=== PATIENT | male | born 1945 | race Caucasian/White ===

== ENCOUNTER 2024-09-27 08:01 | Inpatient (IN) | payer MEDICARE, MEDICAID, OTHER, SELFPAY ==
[2024-09-27] VITALS (16 sets, daily range): BP systolic 89–150; BP diastolic 52–71; PULSE 60–79; RESP 20–37; TEMP 36.6–37.7; O2SAT 98–100; BMI 28.9
--- NOTE | 2024-09-27 | ECHO_ITS ---
Patient Info Name: Harvey Sagastume Age: 79 years : 1945 Gender: Male Ht: 70 in Wt: 284 lbs BSA: 2.58 m2 HR: 73 bpm BP: 136 / 64 mmHg Technical Quality: Poor Exam Date: 09/27/2024 3:26 PM Exam Location: Echo Lab Patient Status: Outpatient Admit Date: 09/27/2024 Staff Ordering Physician: Yenny Nelson APRN Scientific Systems Analyst: Kalin Mercer RDCS Attending Provider: Olvin Rodriguez MD Referring Physician: Leslie VALDEZ; Exam Type: CA echo doppler color flow Study Info Indications - ELEVATED BNP - HYPOXIA Complete two-dimensional, color flow and Doppler transthoracic echocardiogram is performed. Summary 1. Complete two-dimensional, color flow and Doppler transthoracic echocardiogram is performed. 2. Technically suboptimal study due to poor sonographic images. 3. Left ventricular chamber dimension is normal. 4. There is mild concentric increased left ventricular wall thickness. 5. Left ventricular septal wall motion is abnormal with septal motion related to pacing. 6. Left ventricular systolic function is preserved, estimated at 50-55%. 7. The left ventricular diastolic function is grade IV diastolic dysfunction. 8. E/e' 10 is mildly elevated. 9. Linear artifact in right ventricle suggestive of catheter(s), pacemaker lead(s), or ICD lead(s). 10. Left atrial chamber dimension is severely enlarged. 11. Right atrial chamber dimension is severely enlarged. 12. Linear artifact in the right atrium suggestive of catheter(s), pacemaker lead(s), or ICD lead(s). 13. The aortic valve is not well visualized. Cannot determine number of aortic valve leaflets. 14. There is moderate to severe aortic valve stenosis based on a peak velocity of 258 cm/s, mean gradient of 18 mmHg, and aortic valve area of 0.9 cm2. 15. The mitral valve has severely calcified annulus. 16. The tricuspid valve leaflets are not well visualized. 17. Mild pulmonary hypertension, estimated pulmonary arterial systolic pressure is 46 mmHg. Left Ventricle E/e' 10 is mildly elevated. Left ventricular systolic function is preserved, estimated at 50-55%. Technically suboptimal study due to poor sonographic images. Left ventricular chamber dimension is normal. There is mild concentric increased left ventricular wall thickness. Left ventricular septal wall motion is abnormal with septal motion related to pacing. The left ventricular diastolic function is grade IV diastolic dysfunction. Right Ventricle Linear artifact in right ventricle suggestive of catheter(s), pacemaker lead(s), or ICD lead(s). Right ventricular chamber dimension is not well visualized. Left Atria Left atrial chamber dimension is severely enlarged. Right Atria Linear artifact in the right atrium suggestive of catheter(s), pacemaker lead(s), or ICD lead(s). Right atrial chamber dimension is severely enlarged. Aortic Valve The aortic valve is not well visualized. Cannot determine number of aortic valve leaflets. There is moderate to severe aortic valve stenosis based on a peak velocity of 258 cm/s, mean gradient of 18 mmHg, and aortic valve area of 0.9 cm2. There is no aortic valve regurgitation. Pulmonic Valve The pulmonic valve is not well visualized. Mitral Valve The mitral valve has severely calcified annulus. There is no mitral valve stenosis. There is no mitral valve regurgitation. Tricuspid Valve The tricuspid valve leaflets are not well visualized. Mild pulmonary hypertension, estimated pulmonary arterial systolic pressure is 46 mmHg. Pericardium/Pleural There is no pericardial effusion. Inferior Vena Cava Normal inferior vena cava with >50% collapse upon inspiration consistent with normal right atrial pressure, 5 mmHg. Aorta The aortic root size at the sinus of Valsalva is normal. Left Ventricular Outflow Tract Name Value Normal LVOT 2D LVOT Diameter 1.9 cm LVOT Doppler LVOT Peak Gradient 2 mmHg LVOT Mean Gradient 1 mmHg LVOT VTI 16 cm LVOT VTI/AV VTI Ratio 0.3 LVOT Stroke Volume 47 ml LVOT CO 2.7 l/min LVOT CI 1.1 l/min/m2 Pulmonic Valve Name Value Normal RVOT Doppler RVOT Peak Gradient 4 mmHg PV Doppler PV Peak Gradient 4 mmHg Mitral Valve Name Value Normal MV Doppler MV Decel [place] 569 cm/s2 MV PHT 60 ms MV Area (PHT) 3.6 cm2 4.0-5.0 MV Diastolic Function MV E Peak Velocity 118 cm/s MV A Peak Velocity 37 cm/s MV E/A 3.2 MV Decel Time 208 ms MV Annular TDI MV E/e' (Septal) 14.1 <=8.0 MV E/e' (Lateral) 8.8 <=8.0 MV E/e' (Average) 11.4 Tricuspid Valve Name Value Normal TV Regurgitation Doppler TR Peak Velocity 319 cm/s TR Peak Gradient 41 mmHg Estimated PAP/RSVP RA Pressure 5 mmHg <=5 PA Systolic Pressure 46 mmHg <36 RV Systolic Pressure 46 mmHg <36 Aorta Name Value Normal Ascending Aorta Ao Root Diameter (MM) 2.4 cm Ao Root Diam Index (MM) 0.9 cm/m2 Aortic Valve Name Value Normal AV Doppler AV Peak Velocity 258 cm/s AV Peak Gradient 27 mmHg AV Mean Gradient 18 mmHg AV VTI 52 cm AV Area (Cont Eq VTI) 0.9 cm2 >=3.0 AV Area (Cont Eq Eddie) 0.8 cm2 AV Regurgitation 2D LVOT Area 2.9 cm2 Ventricles Name Value Normal LV Dimensions 2D/MM IVS Diastolic Thickness (2D) 1.3 cm 0.6-1.0 LVID Diastole (2D) 5.5 cm 4.2-5.8 LVIW Diastolic Thickness (2D) 0.9 cm 0.6-1.0 LVID Systole (2D) 4.0 cm 2.5-4.0 LVOT Diameter 1.9 cm LV Mass (2D Cubed) 250.48 g 88.00-224.00 LV Mass Index (2D Cubed) 97 g/m2 49-115 Relative Wall Thickness (2D) 0.34 LV Fractional Shortening/Ejection Fraction 2D/MM LV Fractional Shortening (2D) 28 % 25-43 LV EF (2D Teicholz) 54 % 52-72 LV Diastolic Volume (4C MOD) 89 ml LV EF (4C MOD) 33 % LV Diastolic Volume (2C MOD) 90 ml LV EF (2C MOD) 51 % LV Diastolic Volume (BP MOD) 91 ml 62-150 LV Diastolic Volume Index (BP MOD) 35 ml/m2 34-74 LV Systolic Volume (BP MOD) 53 ml 21-61 LV Systolic Volume Index (BP MOD) 21 ml/m2 11-31 LV EF (BP MOD) 41 % 52-72 LV Diastolic Length (4C) 8.4 cm LV Systolic Length (4C) 7.9 cm LV Stroke Volume (4C MOD) 30 ml Atria Name Value Normal LA Dimensions LA Dimension (MM) 4.4 cm 3.0-4.1 LA Volume (4C A-L) 122 ml LA Volume (BP A-L) 119 ml RA Dimensions RA Area (4C) 28.6 cm2 <=18.0 Report Signatures
--- NOTE | ~2024-09-27 | XR_ITS ---
XR chest 2V 09/27/2024 08:26 Indication: Shortness of breath Procedure: 2 view chest Comparison: No prior studies for comparison. Findings: Status post median sternotomy for CABG. Pacemaker leads in expected position. Bibasilar air space disease. Small right pleural effusion. No pneumothorax. Mild cardiomegaly. Impression: 1: Bibasilar airspace disease, suspicious for pneumonia. 2: Small right pleural effusion. Reviewed, dictated and finalized at location A. STRIAL NURSE Impression: 1: Bibasilar airspace disease, suspicious for pneumonia. 2: Small right pleural effusion.
--- NOTE | 2024-09-27 08:01 | ECG_ITS ---
Test Date: 2024-09-27 08:09:19 Measurements Intervals [place] Rate: 63 P: 0 AK: 0 QRS: 233 QRSD: 157 T: 125 QT: 469 QTc: 482 Interpretive Statements ELECTRONIC VENTRICULAR PACEMAKER No previous ECG available for comparison Electronically Signed On 09-27-2024 14:43:09 IS ARCHITECT by Slick Carnes M.D.
[2024-09-27 08:34] LABS: Basophils Percent Auto 0.2 % (0.2-1.2); Hematocrit 39.5 % (42.0-52.0); Hemoglobin 12.2 g/dL (14.0-18.0); Immature Granulocyte Absolute 0.02 K/mm3 (0.00-0.031); Immature Granulocyte Percent A 0.3 % (0-0.5); Immature Platelet Fraction Pct 1.4 % (0.9-11.2); Lymphocytes Absolute Auto 0.34 K/mm3 (0.9-3.2); Lymphocytes Percent Auto 5.5 % (18.3-44.2); Mean Corpuscular HGB Conc 30.9 g/dl (32-36); Mean Corpuscular Hemoglobin 26.6 pg (26-34); Mean Corpuscular Volume 86.1 fl (80-100); Mean Platelet Volume 9.6 fl (7.4-10.4); Monocytes Absolute Auto 0.4 K/mm3 (0.1-0.6); Monocytes Percent Auto 7.2 % (2.6-8.5); Neutrophils Absolute Auto 5.3 K/mm3 (1.3-6.7); Neutrophils Percent Auto 86.8 % (45.5-73.1); Platelet Count Result 92 k/mm3 (150-375); Red Blood Count 4.59 M/mm3 (4.6-6.20); Red Cell Distribution Width 16.5 % (11.5-14.5); White Blood Count 6.2 K/mm3 (4.5-10.0)
[2024-09-27 08:38] LABS: Alanine Aminotransferase 28 U/L (6-50); Albumin Level 4.6 g/dL (3.5-5.1); Alkaline Phosphatase 66 U/L (38-126); Anion Gap 10 mmol/L (4-12); Aspartate Amino Transferase 48 U/L (17-59); Bilirubin,Total 0.9 mg/dL (0.2-1.3); Blood Urea Nitrogen 21 mg/dL (9-20); Calcium 9.1 mg/dL (8.4-10.2); Carbon Dioxide 27 mmol/L (22-30); Chloride 99 mmol/L (98-107); Estimated CRCL calculation 67 ml/min; Estimated Glomerular Filt Rate > 60; Glucose 125 mg/dL (65-110); Sodium 136 mmol/L (137-145)
[2024-09-27 09:06] LABS: Add Urine Microscopic? NO; Appearance Urine Clear (Clear); Bacteria Urine None Seen /hpf; Bilirubin Urine Negative (Negative); Blood Urine Non-Hemolyzed Trace (Negative); Color Urine Yellow (Yellow); Glucose Urine UA Negative (Negative); Ketones Urine Negative (Negative); Leukocyte Esterase Ur Negative LEU/UL (Negative); Nitrate Urine Negative (Negative); Non Pathogenic Casts 0-2; Protein Urine Negative (Negative); RBC Urine 0-2 /hpf (0-2); Specific Grav Ur 1.015 (1.001-1.035); Squamous Epithelial Cell Urine None Seen /hpf (Few); WBC Urine 0-5 /hpf (0-3); pH Urine 5.5 (5.0-9.0)
--- NOTE | 2024-09-27 09:06 | ED_ITS ---
HPI - General Adult General Chief complaint: Shortness of Breath/Dyspnea Stated complaint: SOB Time Seen by Provider: 09/27/24 08:21 History of Present Illness HPI narrative: Patient is 79-year-old gentleman presents emergency department with chief complaint of shortness of breath. Patient reports over the last 4 days been having increasing shortness of breath report that he has had a productive cough patient does not normally wear oxygen was found to be hypoxic by EMS was placed on nasal cannula oxygen. Patient denies chest pain reports that he has had some generalized body aches Related Data Allergies Allergy/AdvReac Type Severity Reaction Status Date / Time ciprofloxacin (From Cipro) Allergy Mild Other Verified 09/27/24 09:08 Review of Systems 2 Review of Systems: A 10 system review of systems was completed on the patient and is negative except for what is stated in the HPI. Nursing and ancillary documentation was reviewed. Exam 2 Narrative: GENERAL: Well-appearing, well-nourished, and in no acute distress. HEAD: Normocephalic, atraumatic. EYES: PERRLA and EOMI. ENT: Nares clear, no rhinorrhea or epistaxis. Mucous membranes moist. NECK: Supple. CHEST: Clear to auscultation. No respiratory distress. HEART: Regular rate and rhythm. No murmur heard. Normal peripheral pulses. ABDOMEN: Soft, nontender, nondistended, normal active bowel sounds. EXTREMITIES: Normal range of motion. No edema. SKIN: Warm, dry, no rash. NEURO: No focal deficits. Alert and oriented x3. PSYCH: Normal mood and affect. Course Vital Signs Vital signs: Vital Signs Temperature 37.1 C 09/27/24 08:02 Pulse Rate 79 09/27/24 08:02 Respiratory Rate 37 H 09/27/24 08:02 Blood Pressure 150/67 H 09/27/24 08:02 Pulse Oximetry 98 09/27/24 08:02 Temperature 37.1 C 09/27/24 08:02 Pulse Rate 63 09/27/24 11:50 Respiratory Rate 26 H 09/27/24 11:50 Blood Pressure 89/52 L 09/27/24 11:50 Pulse Oximetry 100 09/27/24 11:50 Oxygen Delivery Nasal Cannula 09/27/24 08:33 Oxygen Flow Rate 2 09/27/24 08:33 Medical Decision Making [facility] Narrative Medical decision making narrative: Differential diagnosis includes pneumonia, CHF, COVID flu, RSV, ACS EKG showed no acute Ischemic changes. The patient's oxygen status improved with 2 L nasal cannula chest x-ray showed evidence of pneumonia the patient was also found to be influenza A positive the patient also had a slight elevation in his troponin. Patient started on Rocephin Zithromax patient was also started on Tamiflu the patient was given aspirin and troponins will be trended case was discussed with the hospitalist for admission Vital Signs Vital Signs: Vital Signs Temperature 37.1 C 09/27/24 08:02 Pulse Rate 79 09/27/24 08:02 Respiratory Rate 37 H 09/27/24 08:02 Blood Pressure 150/67 H 09/27/24 08:02 Pulse Oximetry 98 09/27/24 08:02 Temperature 37.1 C 09/27/24 08:02 Pulse Rate 63 09/27/24 11:50 Respiratory Rate 26 H 09/27/24 11:50 Blood Pressure 89/52 L 09/27/24 11:50 Pulse Oximetry 100 09/27/24 11:50 Oxygen Delivery Nasal Cannula 09/27/24 08:33 Oxygen Flow Rate 2 09/27/24 08:33 Lab Data 09/27/24 08:17 09/27/24 08:17 Labs: Lab Results 09/27/24 09/27/24 09/27/24 Range/Units 08:17 08:42 09:22 WBC 6.2 (4.5-10.0) K/mm3 RBC 4.59 L (4.6-6.20) M/mm3 Hgb 12.2 L (14.0-18.0) g/dL Hct 39.5 L (42.0-52.0) % MCV 86.1 (80-100) fl MCH 26.6 (26-34) pg MCHC 30.9 L (32-36) g/dl RDW 16.5 H (11.5-14.5) % Plt Count 92 L (150-375) k/mm3 MPV 9.6 (7.4-10.4) fl Immature Gran % (Auto) 0.3 (0-0.5) % Neut % (Auto) 86.8 H (45.5-73.1) % Lymph % (Auto) 5.5 L (18.3-44.2) % [place] % (Auto) 7.2 (2.6-8.5) % Eos % (Auto) 0.0 (0-4.4) % Baso % (Auto) 0.2 (0.2-1.2) % Lymph # (Auto) 0.34 L (0.9-3.2) K/mm3 [place] # (Auto) 0.4 (0.1-0.6) K/mm3 Eos # (Auto) 0.0 (0-0.3) K/mm3 Baso # (Auto) 0.0 (0.0-0.1) K/mm3 Abs Immat Gran (auto) 0.02 (0.00-0.031) K/mm3 Absolute Neuts (auto) 5.3 (1.3-6.7) K/mm3 Absolute Nucleated RBC 0.000 (0.0-0.012) K/mm3 Nucleated RBC % 0.0 (0.0-0.2) % % Immature Plt Fraction 1.4 (0.9-11.2) % PT 20.9 H (11.1-14.7) Seconds INR 1.7 APTT 44.1 H (22.3-36.8) Seconds Sodium 136 L (137-145) mmol/L Potassium 4.0 (3.4-5.0) mmol/L Chloride 99 (98-107) mmol/L Carbon Dioxide 27 (22-30) mmol/L Anion Gap 10 (4-12) mmol/L BUN 21 H (9-20) mg/dL Creatinine 1.05 (0.7-1.3) mg/dL Estim Creat Clear Calc 67 ml/min Estimated GFR > 60 (59 - ) Glucose 125 H (65-110) mg/dL Lactic Acid 1.1 (0.7-2.0) mmol/L Calcium 9.1 (8.4-10.2) mg/dL Magnesium 2.1 (1.6-2.3) mg/dL Total Bilirubin 0.9 (0.2-1.3) mg/dL AST 48 (17-59) U/L ALT 28 (6-50) U/L Alkaline Phosphatase 66 (38-126) U/L Troponin I 0.078 H* (0.000-0.034) ng/mL NT-Pro-B Natriuret Pep 5680 H (19.9-100) pg/mL Total Protein 8.0 (6.3-8.2) g/dL Albumin 4.6 (3.5-5.1) g/dL Lipase 70 (23-300) U/L Procalcitonin 0.3 ng/mL Urine Color Yellow (Yellow) Urine Appearance Clear (Clear) Urine pH 5.5 (5.0-9.0) Ur Specific [place] 1.015 (1.001-1.035) Urine Protein Negative (Negative) mg/dL Urine Glucose (UA) Negative (Negative) mg/dL Urine Ketones Negative (Negative) mg/dL Ur Blood (Man) Non-hemolyzed trace (Negative) Urine Nitrate Negative (Negative) Urine Bilirubin Negative (Negative) Urine Urobilinogen 1.0 (<2.0) mg/dL Leukocyte Esterase Rfl Negative (Negative) HORACIO/UL Urine RBC 0-2 (0-2) /hpf Urine WBC 0-5 (0-3) /hpf Ur Squamous Epith Cells None seen (Few) /hpf Urine Bacteria None seen /hpf Urine Casts 0-2 Influenza A (RT-PCR) Positive A (Negative) Influenza B (RT-PCR) Negative (Negative) RSV (RT-PCR) Negative (Negative) SARS-CoV-2 RNA (RT-PCR) Negative (Negative) 09/27/24 Range/Units 12:04 WBC (4.5-10.0) K/mm3 RBC (4.6-6.20) M/mm3 Hgb (14.0-18.0) g/dL Hct (42.0-52.0) % MCV (80-100) fl MCH (26-34) pg MCHC (32-36) g/dl RDW (11.5-14.5) % Plt Count (150-375) k/mm3 MPV (7.4-10.4) fl Immature Gran % (Auto) (0-0.5) % Neut % (Auto) (45.5-73.1) % Lymph % (Auto) (18.3-44.2) % [place] % (Auto) (2.6-8.5) % Eos % (Auto) (0-4.4) % Baso % (Auto) (0.2-1.2) % Lymph # (Auto) (0.9-3.2) K/mm3 [place] # (Auto) (0.1-0.6) K/mm3 Eos # (Auto) (0-0.3) K/mm3 Baso # (Auto) (0.0-0.1) K/mm3 Abs Immat Gran (auto) (0.00-0.031) K/mm3 Absolute Neuts (auto) (1.3-6.7) K/mm3 Absolute Nucleated RBC (0.0-0.012) K/mm3 Nucleated RBC % (0.0-0.2) % % Immature Plt Fraction (0.9-11.2) % PT (11.1-14.7) Seconds INR APTT (22.3-36.8) Seconds Sodium (137-145) mmol/L Potassium (3.4-5.0) mmol/L Chloride (98-107) mmol/L Carbon Dioxide (22-30) mmol/L Anion Gap (4-12) mmol/L BUN (9-20) mg/dL Creatinine (0.7-1.3) mg/dL Estim Creat Clear Calc ml/min Estimated GFR (59 - ) Glucose (65-110) mg/dL Lactic Acid (0.7-2.0) mmol/L Calcium (8.4-10.2) mg/dL Magnesium (1.6-2.3) mg/dL Total Bilirubin (0.2-1.3) mg/dL AST (17-59) U/L ALT (6-50) U/L Alkaline Phosphatase (38-126) U/L Troponin I 0.070 H* (0.000-0.034) ng/mL NT-Pro-B Natriuret Pep (19.9-100) pg/mL Total Protein (6.3-8.2) g/dL Albumin (3.5-5.1) g/dL Lipase (23-300) U/L Procalcitonin ng/mL Urine Color (Yellow) Urine Appearance (Clear) Urine pH (5.0-9.0) Ur Specific [place] (1.001-1.035) Urine Protein (Negative) mg/dL Urine Glucose (UA) (Negative) mg/dL Urine Ketones (Negative) mg/dL Ur Blood (Man) (Negative) Urine Nitrate (Negative) Urine Bilirubin (Negative) Urine Urobilinogen (<2.0) mg/dL Leukocyte Esterase Rfl (Negative) HORACIO/UL Urine RBC (0-2) /hpf Urine WBC (0-3) /hpf Ur Squamous Epith Cells (Few) /hpf Urine Bacteria /hpf Urine Casts Influenza A (RT-PCR) (Negative) Influenza B (RT-PCR) (Negative) RSV (RT-PCR) (Negative) SARS-CoV-2 RNA (RT-PCR) (Negative) Discharge Plan Discharge Clinical Impression: Pneumonia, Acute hypoxemic respiratory failure, Influenza A, Elevated troponin Patient Disposition: Still a Patient Condition: Stable Patient Language: Ukrainian Follow-up/Referrals: UNKNOWN,DOCTOR [Primary Care Provider] - Time of Disposition: 12:20
[2024-09-27 09:49] LABS: INR 1.7; Prothrombin Time 20.9 Seconds (11.1-14.7)
[2024-09-27 09:50] LABS: Partial Thromboplastin Time 44.1 Seconds (22.3-36.8)
[2024-09-27 09:52] LABS: Lactic Acid Reflex 1.1 mmol/L (0.7-2.0); Lipase 70 U/L (23-300); Magnesium 2.1 mg/dL (1.6-2.3)
[2024-09-27] MEDS: AZITHROMYCIN 500 MG/NS 250 ML 500 MG/250 ML BAG 250 MG IVPB (09:56)
[2024-09-27 10:09] LABS: NT Pro B Type Natriuretic Pept 5680 pg/mL (19.9-100); Troponin I 0.078 ng/mL (0.000-0.034)
[2024-09-27 10:10] LABS: Procalcitonin 0.3 ng/mL
[2024-09-27 10:14] LABS: Influenza A QL RT-PCR Positive (Negative); Influenza B QL RT-PCR Negative (Negative); RSV RNA, RT-PCR Negative (Negative); SARS-CoV-2 RNA PCR Negative (Negative)
--- NOTE | 2024-09-27 11:50 | PC.NURSE ---
Patient's BP trending lower than initial blood pressures. Verbal order for 1000ml blous at this time by EDP.
[2024-09-27] MEDS: SODIUM CHLORIDE 0.9% IV 1,000 ML 999 ML IV CONT (12:06)
--- NOTE | 2024-09-27 13:55 | P.HP_ITS ---
H&P: HPI History of Present Illness Date/Time: 09/27/24 13:55 Chief Complaint: Shortness of Breath Narrative: 79 y/o M presents here with shortness of breath with PMH of MA, atrial fibrillation, CHF, CAD, HLD, hypertension, pacemaker, emphysema, GERD, BPH, renal disease, diabetes, anxiety/depression. The patient presents here from [facility] via EMS for further evaluation of shortness of breath. The patient reports he has been feeling short of breath for the past 4 days. He reports the shortness of breath is accompanied by a productive cough and fatigue. Sputum has been green. He denies fever, chills, body aches, chest pain, nausea, vomiting, diarrhea, or abdominal pain. Patient was found to be hypoxic by EMS upon their arrival, placed on 2L NC while en route to the ER. Arrived to the ER at 98% on 2L NC and tachypneic in the 30's. The patient does not have a history of supplemental O2 requirement. The patient does have a history of CHF. He denies any recent increase in lower extremity swelling or weight gain. Initial VS at presentation: 98.7? F, HR 79, RR 37, 150/67, and 98% on 2L NC. ED workup showed: WBC 6.2, hemoglobin 12.2, INR 1.7, creatinine 1.05 and GFR >60, glucose 125, lactic 1.1, troponin 0.070, procalcitonin 0.3, and BNP 5680. No previous labs available for comparison. CXR showed bibasilar airspace disease suspicious for pneumonia and a small right pleural effusion. UA unremarkable. Patient tested positive for Flu A, negative for Flu B/RSV/COVID. Review of Systems Review of Systems: All systems reviewed & are unremarkable except as noted in HPI and below PMFSH Past Medical History Medical History Depression Anxiety Diabetes Anemia Arthritis Renal disease GERD (gastroesophageal reflux disease) Emphysema, unspecified BPH (benign prostatic hyperplasia) Myocardial infarction HTN (hypertension) HLD (hyperlipidemia) CAD (coronary artery disease) CHF (congestive heart failure) Atrial fibrillation Dementia Surgical History Surgical History History of permanent cardiac pacemaker placement Social History Social History Smoking status: Never smoker Alcohol intake: former Substance use: former Substance use type: marijuana Do You Feel Safe in your Home?: Yes Lack of Transportation: No Lack of Food: Never True Current Housing: I Have Housing Concerned About Future Housing: No Difficulty Paying Gas/Electric Bills: No Difficulty Paying for Meds: No Currently Unemployed: No Education: High School Diploma/GED Difficulty w/ Childcare or Family Care: No Living arrangements: [facility] Occupation/Education: retired Gender identity (if verbalized by the patient): Male Sexual Orientation (if Verbalized by the Patient): Straight or Heterosexual Spiritual care concerns: No Agree to blood products: Yes Meds Home Medications and Allergies Home Medications ?Medication ?Instructions ?Recorded ?Confirmed ?Type acetaminophen 325 mg tablet 650 mg PO Q6H PRN pain 09/27/24 09/27/24 History (Tylenol) amoxicillin 500 mg capsule 500 mg PO Q8H 09/27/24 09/27/24 History apixaban 5 mg tablet (Eliquis) 5 mg PO DAILY 09/27/24 09/27/24 History aspirin 81 mg chewable tablet 81 mg PO DAILY 09/27/24 09/27/24 History bumetanide 0.5 mg tablet 0.5 mg PO BID 09/27/24 09/27/24 History diclofenac sodium 1 % topical gel 2 g topical QID PRN pain 09/27/24 09/27/24 History (Arthritis Pain (diclofenac)) ergocalciferol (vitamin D2) 1,000 50 mcg PO DAILY 09/27/24 09/27/24 History unit capsule ferrous sulfate 325 mg (65 mg 325 mg PO DAILY 09/27/24 09/27/24 History iron) tablet (FeroSul) finasteride 5 mg tablet 5 mg PO DAILY 09/27/24 09/27/24 History galantamine 24 mg 24 hr 24 mg PO DAILY 09/27/24 09/27/24 History capsule,extended release lidocaine 4 % topical cream 1 applic topical Q8H PRN pain 09/27/24 09/27/24 History (AsperFlex (lidocaine)) melatonin 3 mg tablet 3 mg PO HS 09/27/24 09/27/24 History memantine 10 mg tablet 10 mg PO QPM 09/27/24 09/27/24 History pantoprazole 40 mg tablet,delayed 40 mg PO DAILY 09/27/24 09/27/24 History release polyethylene glycol 3350 17 17 g PO DAILY PRN constipation 09/27/24 09/27/24 History gram/dose oral powder potassium chloride 10 mEq 10 meq PO BID 09/27/24 09/27/24 History tablet,extended release rosuvastatin 40 mg tablet 40 mg PO DAILY 09/27/24 09/27/24 History sennosides 8.6 mg tablet (senna) 17.2 mg PO DAILY PRN constipation 09/27/24 09/27/24 History sertraline 100 mg tablet 100 mg PO DAILY 09/27/24 09/27/24 History tramadol 50 mg tablet 50 mg PO Q8H PRN pain 09/27/24 09/27/24 History Allergies Allergy/AdvReac Type Severity Reaction Status Date / Time ciprofloxacin (From Cipro) Allergy Mild Other Verified 09/27/24 14:38 Vital Signs Vital Signs - 24 hr 09/27/24 08:02 09/27/24 08:05 09/27/24 08:33 Temperature 98.7 F Pulse Rate 79 73 Respiratory Rate 37 H Blood Pressure 150/67 H Pulse Oximetry 98 98 Oxygen Delivery Nasal Cannula Oxygen Flow Rate 2 09/27/24 09:35 09/27/24 11:50 09/27/24 13:03 Temperature Pulse Rate 60 63 60 Respiratory Rate 30 H 26 H 25 H Blood Pressure 125/65 89/52 L 139/60 Pulse Oximetry 99 100 98 Oxygen Delivery Oxygen Flow Rate Exam Const: General: comfortable Other: , male, elderly, ill-appearing. Very mild work of breathing without overt distress. HENMT: Face/Nose/Sinus: Normal nares present Mouth: Yes dry mucous m embranes Other: Nasal cannula in place Eyes: General: appearance normal, both eyes and all related structures Sclera: sclerae normal Pupils: Equal, round and reactive pupils present EOM: EOMs intact bilaterally Resp: Other: Mild dyspnea with mild work of breathing without overt distress. Bibasilar crackles, left worse than right. Cardio: Rate: regular rate Rhythm: regular rhythm Other: S1-S2 present without murmur, rub, ectopy GI: Other: Abdomen soft, nondistended, nontender Skin: General skin exam: normal color and no rashes or lesions noted Wounds: no wounds Neuro: Speech: normal speech Motor exam (neuro): 5/5 motor strength present throughout Sensory Exam: normal sensation Other: Who somnolent, awakens to voice but has difficulty sustaining wakefulness. A&O x4. Extrem: General: normal to inspection Psych: Mental Status: mental status grossly normal Affect: normal affect Other: Good to fair insight and judgment, pleasant H&P: Results Labs Labs: Short CBC 09/27/24 Range/Units 08:17 WBC 6.2 (4.5-10.0) K/mm3 Hgb 12.2 L (14.0-18.0) g/dL Hct 39.5 L (42.0-52.0) % Plt Count 92 L (150-375) k/mm3 BMP 09/27/24 08:17 Sodium 136 L Potassium 4.0 Chloride 99 Carbon Dioxide 27 BUN 21 H Creatinine 1.05 Glucose 125 H Calcium 9.1 Cardiac Enzymes 09/27/24 09/27/24 Range/Units 09:22 12:04 Troponin I 0.078 H* 0.070 H* (0.000-0.034) ng/mL Liver Function 09/27/24 Range/Units 08:17 Total Bilirubin 0.9 (0.2-1.3) mg/dL AST 48 (17-59) U/L ALT 28 (6-50) U/L Alkaline Phosphatase 66 (38-126) U/L Albumin 4.6 (3.5-5.1) g/dL Urine 09/27/24 Range/Units 08:42 Urine Color Yellow (Yellow) Urine Appearance Clear (Clear) Urine pH 5.5 (5.0-9.0) Ur Specific Bunn 1.015 (1.001-1.035) Urine Protein Negative (Negative) mg/dL Urine Glucose (UA) Negative (Negative) mg/dL Assessment and Plan Assessment and plan (1) Acute hypoxemic respiratory failure: Code(s): J96.01 - Acute respiratory failure with hypoxia Status: Acute Assessment and Plan: - CXR: 1: Bibasilar airspace disease, suspicious for pneumonia. 2: Small right pleural effusion. - new supplemental O2 requirement, currently requiring 2L NC. wean as tolerated and maintain sat above 92%. Suspect hypoxia may be multifactorial. Patient tested positive for flu, chest x-ray concerning for pneumonia, and BNP elevated with effusion seen on CXR. Will add echo, does have history of CHF on Bumex 0.5 mg b.i.d. but does not appear volume overloaded on exam. Monitor I&Os and daily weight, add TSH. (2) Pneumonia: Qualifiers: Pneumonia type: due to influenza A virus Qualified Code(s): J10.00 - Influenza due to other identified influenza virus with unspecified type of pneumonia Code(s): J18.9 - Pneumonia, unspecified organism Status: Acute Assessment and Plan: - did not meet SIRS criteria. RR only. BC were obtained on 09/27, follow. lactic 1.1. procalcitonin 0.3. - see CXR result above - complicating and risk factors: Flu, [facility] resident - started on CAP tx: Azithromycin and ceftriaxone on 09/27 - Viral PCR positive for flu A - new supplemental O2 requirement. Continue to maintain sat above 92%. (3) Elevated troponin: Code(s): R79.89 - Other specified abnormal findings of blood chemistry Status: Acute Assessment and Plan: - EKG, initial: Electronic ventricular pacemaker, rate 63. No previous available for comparison. - CXR concerning for pneumonia and small pleural effusion - Troponin: 0.078 -> 0.070 - echo ordered, pleural effusion on imaging and elevated BNP - telemetry monitoring Suspect mild troponin leak secondary to new hypoxia. Continue to trend. (4) Influenza A: Code(s): J10.1 - Influenza due to other identified influenza virus with other respiratory manifestations Status: Acute Assessment and Plan: - Tamiflu initiated on 09/27 - supportive care Tessalon Perles p.r.n. Mucinex p.r.n. Antipyretics p.r.n. Nebulizer p.r.n. (5) Diabetes: Qualifiers: Diabetes mellitus type: type 2 Diabetes mellitus rat exterminator insulin use: without senior living use Diabetes mellitus complication status: without complication Qualified Code(s): E11.9 - Type 2 diabetes mellitus without complications Code(s): E11.9 - Type 2 diabetes mellitus without complications Status: Chronic Assessment and Plan: Initial glucose 125. No home medications listed from [facility] paperwork. - hypoglycemia protocol - POC blood glucose ACHS - correct regimen ordered - low dose TIDWM, based off total daily insulin - A1C ordered (6) HTN (hypertension): Qualifiers: Hypertension type: unspecified Qualified Code(s): I10 - Essential (primary) hypertension Code(s): I10 - Essential (primary) hypertension Status: Chronic Assessment and Plan: - chronic, currently 126/55 - no current antihypertensive medications, is on diuretic (Bumex 0.5 mg b.i.d.) - monitor Plan Diet: Heart healthy GI Prophylaxis: Not currently indicated DVT Prophylaxis: Eliquis Lines: Peripheral Code Status: Full code Quality VTE Prophylaxis VTE prophylaxis: pharmacologic ordered Hospitalist MIPS Advance Care Plan I have confirmed that the patient's Advanced Care Plan is present, code status is documented, or surrogate decision maker is listed in patient medical record.: Yes Medication Reconciliation I have utilized all available resources to obtain, update and review the patients current medications (includes all prescriptions, OTC, herbals, cannabis, and nutritional supplements).: Yes
--- NOTE | 2024-09-27 18:44 | PC.NURSE ---
Patient arrived alert to self on tele.
[2024-09-27] MEDS: IPRATROPIUM 0.5 MG/ALBUTEROL SULFATE 2.5 MG AMPUL.NEB 3 ML INHALATION (19:51)
[2024-09-27 20:25] LABS: Troponin I 0.052 ng/mL (0.000-0.034)
[2024-09-27 20:44] LABS: Glucose Point of Care 86 mg/dl (65-105)
[2024-09-27] MEDS: MELATONIN 3 MG TABLET PO (20:51)
[2024-09-27] MEDS: OSELTAMIVIR PHOSPHATE 75 MG CAPSULE PO (20:51)
[2024-09-28] VITALS (26 sets, daily range): BP systolic 121–147; BP diastolic 56–73; PULSE 60–71; RESP 16–20; TEMP 36.8–38.2; O2SAT 95–100
[2024-09-28] MEDS: ACETAMINOPHEN 325 MG TABLET 650 MG PO (00:02)
[2024-09-28] MEDS: guaiFENesin 12 HR 600 MG TABCR PO (00:02)
[2024-09-28] MEDS: BENZONATATE 100 MG CAPSULE PO (00:02)
[2024-09-28] MEDS: IPRATROPIUM 0.5 MG/ALBUTEROL SULFATE 2.5 MG AMPUL.NEB 3 ML INHALATION ×4 (01:45→20:21)
[2024-09-28 05:00] LABS: Eosinophils Percent Auto 0.6 % (0-4.4); Hematocrit 38.4 % (42.0-52.0); Hemoglobin 11.4 g/dL (14.0-18.0); Immature Granulocyte Absolute 0.02 K/mm3 (0.00-0.031); Immature Granulocyte Percent A 0.6 % (0-0.5); Immature Platelet Fraction Pct 2.2 % (0.9-11.2); Lymphocytes Absolute Auto 0.65 K/mm3 (0.9-3.2); Lymphocytes Percent Auto 18.7 % (18.3-44.2); Mean Corpuscular HGB Conc 29.7 g/dl (32-36); Mean Corpuscular Hemoglobin 26.6 pg (26-34); Mean Corpuscular Volume 89.5 fl (80-100); Mean Platelet Volume 10.1 fl (7.4-10.4); Monocytes Absolute Auto 0.4 K/mm3 (0.1-0.6); Monocytes Percent Auto 10.7 % (2.6-8.5); Neutrophils Absolute Auto 2.4 K/mm3 (1.3-6.7); Neutrophils Percent Auto 69.4 % (45.5-73.1); Red Blood Count 4.29 M/mm3 (4.6-6.20); Red Cell Distribution Width 16.7 % (11.5-14.5); White Blood Count 3.5 K/mm3 (4.5-10.0)
[2024-09-28 05:02] LABS: Hemoglobin A1C 5.9 % (<5.7)
[2024-09-28 05:03] LABS: Anion Gap 12 mmol/L (4-12); Blood Urea Nitrogen 23 mg/dL (9-20); Calcium 8.3 mg/dL (8.4-10.2); Carbon Dioxide 23 mmol/L (22-30); Chloride 102 mmol/L (98-107); Estimated CRCL calculation 63 ml/min; Estimated Glomerular Filt Rate > 60; Glucose 99 mg/dL (65-110); Potassium 3.6 mmol/L (3.4-5.0); Sodium 137 mmol/L (137-145)
[2024-09-28 05:26] LABS: Platelet Count Result 73 k/mm3 (150-375)
[2024-09-28 05:27] LABS: Anisocytosis 1+; Burr Cells 1+; Ovalocytes 1+; Platelet Estimate Decreased (Adequate); Schistocytes None Seen
[2024-09-28 07:57] LABS: Glucose Point of Care 135 mg/dl (65-105)
[2024-09-28] MEDS: AZITHROMYCIN 500 MG/NS 250 ML 500 MG/250 ML BAG 250 MG IVPB (09:13)
[2024-09-28] MEDS: FERROUS SULFATE 325 MG TABLET DR BY MOUTH (09:14)
[2024-09-28] MEDS: FINASTERIDE 5 MG TABLET PO (09:14)
[2024-09-28] MEDS: CHOLECALCIFEROL 1,000 UNITS TABLET 2000 UNITS PO (09:14)
[2024-09-28] MEDS: SERTRALINE HCL 50 MG TABLET 100 MG PO (09:15)
[2024-09-28] MEDS: OSELTAMIVIR PHOSPHATE 75 MG CAPSULE PO ×2 (09:15→21:31)
[2024-09-28] MEDS: BUMETANIDE 0.5 MG TABLET PO (09:15)
[2024-09-28] MEDS: POTASSIUM CHLORIDE 10 MEQ ER TABLET PO ×2 (09:15→17:22)
[2024-09-28] MEDS: ROSUVASTATIN 20 MG TABLET 40 MG PO (09:15)
[2024-09-28] MEDS: PANTOPRAZOLE 40 MG TABLET PO (09:16)
--- NOTE | 2024-09-28 10:20 | PM.IMPN ---
Progress Note: A&P Assessment and Plan (1) HTN (hypertension): Qualifiers: Hypertension type: unspecified Qualified Code(s): I10 - Essential (primary) hypertension Code(s): I10 - Essential (primary) hypertension Status: Chronic (2) Elevated troponin: Code(s): R79.89 - Other specified abnormal findings of blood chemistry Status: Acute (3) Diabetes: Qualifiers: Diabetes mellitus complication status: without complication Diabetes mellitus exterminator helper termite insulin use: without assisted use Diabetes mellitus type: type 2 Qualified Code(s): E11.9 - Type 2 diabetes mellitus without complications Code(s): E11.9 - Type 2 diabetes mellitus without complications Status: Chronic (4) Pneumonia: Qualifiers: Pneumonia type: due to influenza A virus Qualified Code(s): J10.00 - Influenza due to other identified influenza virus with unspecified type of pneumonia Code(s): J18.9 - Pneumonia, unspecified organism Status: Acute (5) Acute hypoxemic respiratory failure: Code(s): J96.01 - Acute respiratory failure with hypoxia Status: Acute (6) Influenza A: Code(s): J10.1 - Influenza due to other identified influenza virus with other respiratory manifestations Status: Acute Plan Acute hypoxemic respiratory failure: Code(s): J96.01 - Acute respiratory failure with hypoxia Status: Acute Assessment and Plan: new supplemental O2 requirement, currently requiring 2L NC. wean as tolerated and maintain sat above 92%. Possible due to pneumonia and fluid overload because of CHF . Pneumonia: Qualifiers: Pneumonia type: due to influenza A virus Qualified Code(s): J10.00 - Influenza due to other identified influenza virus with unspecified type of pneumonia Code(s): J18.9 - Pneumonia, unspecified organism Status: Acute Assessment and Plan: Chest x-ray showed: Bibasilar airspace disease, suspicious for pneumonia. Small right pleural effusion Consistent with community-acquired pneumonia. Continue Azithromycin and ceftriaxone on 09/27 - Viral PCR positive for flu A Start Tamiflu p.o. Acute on chronic diastolic heart failure , BNP elevated with effusion seen on CXR. echo 09/27 Left ventricular systolic function is preserved, estimated at 50-55%. Also suspecting moderate to severe aortic stenosis. The left ventricular diastolic function is grade IV diastolic dysfunction. history of CHF on Bumex 0.5 mg b.i.d. but does not appear volume overloaded on exam. Monitor I&Os and daily weight Start Lasix 40 mg b.i.d. IV push Consult crab backer for evaluation treatment Elevated troponin: Code(s): R79.89 - Other specified abnormal findings of blood chemistry Status: Acute Assessment and Plan: - EKG, initial: Electronic ventricular pacemaker, rate 63. No previous available for comparison. - CXR concerning for pneumonia and small pleural effusion - Troponin: 0.078 -> 0.070 - echo ordered, pleural effusion on imaging and elevated BNP - telemetry monitoring Suspect mild troponin leak secondary to new hypoxia. Consult crab backer Pancytopenia White blood cell 3.5 1000, hemoglobin 11.4, platelet 73 Possible due to infection Follow-up CBC Diabetes: Qualifiers: Diabetes mellitus type: type 2 Diabetes mellitus exterminator helper termite insulin use: without exterminator helper termite use Diabetes mellitus complication status: without complication Qualified Code(s): E11.9 - Type 2 diabetes mellitus without complications Code(s): E11.9 - Type 2 diabetes mellitus without complications Status: Chronic Assessment and Plan: Initial glucose 125. No home medications listed from [facility] paperwork. - hypoglycemia protocol - POC blood glucose ACHS - correct regimen ordered - low dose TIDWM, based off total daily insulin - A1C ordered HTN (hypertension): Qualifiers: Hypertension type: unspecified Qualified Code(s): I10 - Essential (primary) hypertension Code(s): I10 - Essential (primary) hypertension Status: Chronic Assessment and Plan: - chronic, currently 126/55 - no current antihypertensive medications, is on diuretic (Bumex 0.5 mg b.i.d.) - monitor Subjective Date/time seen: 09/28/24 10:20 Interval history: Patient is afebrile, blood pressure stable, patient is on 2 L oxygen. Labs showed pancytopenia. Patient still has cough with scant phlegm, patient has significant dyspnea with exertion. Patient denies abdomen pain nausea vomiting diarrhea Exam Narrative: GENERAL: Pleasant, in no acute distress. Well-nourished. - EYES: EOMI. Anicteric. - HENT: Moist mucous membranes. - LUNGS: Coarse breath sound bilateral base, no wheezing, rhonchi, or rales. - CARDIOVASCULAR: Regular rate and rhythm. No murmur. No JVD. - ABDOMEN: Soft, non-tender and non-distended. No palpable masses. - EXTREMITIES: No edema. Peripheral pulses 2+. Non-tender. - NEUROLOGIC: No focal neurological deficits. CN II-XII grossly intact. - PSYCHIATRIC: Awake, Alert and oriented x 3. Appropriate mood and affect. - SKIN: No rashes or lesions. Warm. - LYMPH: No cervical lymphadenopathy. Objective Data Vital Signs Vital Signs: Vital Signs - 24 hr 09/27/24 11:50 09/27/24 13:03 09/27/24 14:05 Temperature Pulse Rate 63 60 61 Respiratory Rate 26 H 25 H 25 H Blood Pressure 89/52 L 139/60 126/71 Pulse Oximetry 100 98 98 Oxygen Delivery Oxygen Flow Rate Fraction of Inspired Oxygen 09/27/24 14:46 09/27/24 16:00 09/27/24 16:25 Temperature 98.1 F 97.9 F Pulse Rate 73 60 65 Respiratory Rate 20 20 Blood Pressure 136/64 126/55 L Pulse Oximetry 98 100 Oxygen Delivery Oxygen Flow Rate Fraction of Inspired Oxygen 09/27/24 18:00 09/27/24 19:50 09/27/24 19:51 Temperature 99.9 F H Pulse Rate 60 64 Respiratory Rate 20 Blood Pressure 121/57 L Pulse Oximetry 100 98 Oxygen Delivery Nasal Cannula Oxygen Flow Rate 2 Fraction of Inspired Oxygen 28 09/27/24 19:51 09/27/24 20:00 09/27/24 20:00 Temperature Pulse Rate 62 60 65 Respiratory Rate 20 20 Blood Pressure Pulse Oximetry Oxygen Delivery Oxygen Flow Rate Fraction of Inspired Oxygen 09/27/24 20:45 09/27/24 22:00 09/28/24 00:00 Temperature Pulse Rate 60 Respiratory Rate Blood Pressure Pulse Oximetry 100 99 Oxygen Delivery Nasal Cannula Nasal Cannula Oxygen Flow Rate 2 2 Fraction of Inspired Oxygen 09/28/24 00:00 09/28/24 00:02 09/28/24 00:05 Temperature 100.7 F H 100.7 F H Pulse Rate 61 60 Respiratory Rate 20 Blood Pressure 121/56 L Pulse Oximetry 99 Oxygen Delivery Oxygen Flow Rate Fraction of Inspired Oxygen 09/28/24 01:45 09/28/24 01:56 09/28/24 02:00 Temperature Pulse Rate 60 63 66 Respiratory Rate 16 16 Blood Pressure Pulse Oximetry Oxygen Delivery Oxygen Flow Rate Fraction of Inspired Oxygen 09/28/24 03:30 09/28/24 04:00 09/28/24 04:20 Temperature 98.2 F Pulse Rate 67 60 Respiratory Rate 20 Blood Pressure 147/73 H Pulse Oximetry 100 98 Oxygen Delivery Nasal Cannula Oxygen Flow Rate 2 Fraction of Inspired Oxygen 09/28/24 06:00 09/28/24 08:00 09/28/24 08:14 Temperature 98.2 F Pulse Rate 60 60 Respiratory Rate 20 Blood Pressure 141/68 H Pulse Oximetry 98 96 Oxygen Delivery Nasal Cannula Oxygen Flow Rate 2 Fraction of Inspired Oxygen 09/28/24 08:14 09/28/24 08:25 Temperature Pulse Rate 60 60 Respiratory Rate 18 18 Blood Pressure Pulse Oximetry Oxygen Delivery Oxygen Flow Rate Fraction of Inspired Oxygen Intake/Output Intake/Output: Intake & Output 09/25/24 09/26/24 09/27/24 09/28/24 23:59 23:59 23:59 23:59 Intake Total 2130 490 Output Total 300 200 Balance 1830 290 Meds/Results Medications: Active Medications Generic Name Dose Route Start Last Admin Trade Name Freq PRN Reason Stop Dose Admin Acetaminophen 650 mg 09/27/24 13:00 09/28/24 00:02 Acetaminophen 325 Mg Tablet PO 650 mg Q4H PRN Administration Mild Pain (1-3) or Fever Albuterol/Ipratropium 3 ml 09/27/24 14:00 09/28/24 08:13 Ipratropium 0.5 Mg/Albuterol Sulfate 2.5 Mg Ampul.Neb 3 Ml INHALATION 3 ml Q6HRT WILMAN Administration Albuterol/Ipratropium 3 ml 09/27/24 14:08 Ipratropium 0.5 Mg/Albuterol Sulfate 2.5 Mg Ampul.Neb 3 Ml INHALATION Q6HRT PRN Shortness Of Breath Or Wheezing Apixaban 5 mg 09/28/24 09:00 09/28/24 09:53 Apixaban 5 Mg Tablet PO Not Given Q12HR WILMAN Aspirin 81 mg 09/28/24 09:00 09/28/24 09:54 Aspirin 81 Mg Chewable Tablet PO Not Given DAILY WILMAN Benzonatate 100 mg 09/27/24 14:08 09/28/24 00:02 Benzonatate 100 Mg Capsule PO 100 mg TID PRN Administration Cough Bumetanide 0.5 mg 09/28/24 09:00 09/28/24 09:15 Bumetanide 0.5 Mg Tablet PO 0.5 mg BID WILMAN Administration Dextrose 12.5 gm 09/27/24 19:43 Dextrose 50% 25 Gm/50 Ml Syringe IV PUSH PRN PRN Hypoglycemia Protocol Diclofenac Sodium 1 applic 09/27/24 19:40 Diclofenac Sodium 1% 100 Gm Gel (*Bkc) TOPICAL QID PRN pain Ferrous Sulfate 325 mg 09/28/24 09:00 09/28/24 09:14 Ferrous Sulfate [address] BY MOUTH 325 mg DAILY WILMAN Administration Finasteride 5 mg 09/28/24 09:00 09/28/24 09:14 Finasteride 5 Mg Tablet PO 5 mg DAILY WILMAN Administration Glucagon 1 mg 09/27/24 19:43 Glucagon For Inj 1 Mg Vial IM PRN PRN Hypoglycemia Protocol Glucose 15 gm 09/27/24 19:43 Glucose Oral Gel 15 Gm Of Glucse In 37.5 Gm Tube PO PRN PRN Hypoglycemia Protocol Guaifenesin 600 mg 09/27/24 14:08 09/28/24 00:02 Guaifenesin 12 Hr 600 Mg Tabcr PO 600 mg Q12HR PRN Administration Congestion Ceftriaxone Sodium 1 gm in 50 mls @ 100 mls/hr 09/28/24 09:00 09/28/24 09:14 Rocephin 1 Gm/Ns 50 Ml IVPB 100 mls/hr Q24H WILMAN Administration Azithromycin 500 mg in 250 mls @ 250 mls/hr 09/28/24 09:00 09/28/24 09:13 Zithromax IVPB 250 mls/hr Q24H WILMAN Administration Dextrose 1,000 mls @ 100 mls/hr 09/27/24 19:43 Dextrose 5% 1,000 Ml IVPB PRN PRN Hypoglycemia Protocol Insulin Aspart 2 - 5 units 09/28/24 08:00 09/28/24 09:16 Insulin Aspart (*Bkc) 100 Units/Ml SUB-Q Not Given TIDWM REPLACED BY [facility] Protocol Melatonin 3 mg 09/27/24 21:00 09/27/24 20:51 Melatonin 3 Mg Tablet PO 3 mg HS WILMAN Administration Memantine 10 mg 09/28/24 18:00 Memantine 10 Mg Tablet PO QPM REPLACED BY [facility] Miscellaneous Information 1 each 09/27/24 00:[address] Of Application Needed And Specify Type Of Pain XX 10/27/24 00:00 CLARIFY REPLACED BY [facility] Miscellaneous Information 1 each 09/27/24 00:01 Nonformulary Drug (Galantamine 24 Mg Capsule,Ext Rel. Pellets 24 Hr) Is Non Formulary Can XX 10/27/24 00:00 CLARIFY REPLACED BY [facility] Miscellaneous Information 1 each 09/27/24 00:01 Nonformulary Drug (Lidocaine [Asperflex (Lidocaine)] 4 % Cream). Use From Home Or We [facility] XX 10/27/24 00:00 CLARIFY REPLACED BY [facility] Non-Formulary Medication 24 mg 09/28/24 09:00 Galantamine PO 10/28/24 08:59 DAILY REPLACED BY [facility] Non-Formulary Medication 1 applic 09/27/24 19:40 Lidocaine [Asperflex (Lidocaine)] TOPICAL Q8H PRN pain Oseltamivir Phosphate 75 mg 09/27/24 21:00 09/28/24 09:15 Oseltamivir Phosphate 75 Mg Capsule PO 10/02/24 20:59 75 mg Q12HR WILMAN Administration Pantoprazole Sodium 40 mg 09/28/24 09:00 09/28/24 09:16 Pantoprazole 40 Mg Tablet PO 40 mg DAILY WILMAN Administration Perflutren Lipid Microsphere 0 ml 09/27/24 14:08 Perflutren Lipid Microspheres 1.5 Ml Vial Diluted To 10 Ml Total Volume IV PUSH 09/30/24 14:08 ONCE PRN adequate visualization Protocol Polyethylene Glycol 17 gm 09/27/24 19:40 Polyethylene Glycol 3350 17 Gm Powd.Pack PO DAILY PRN constipation Potassium Chloride 10 meq 09/28/24 09:00 09/28/24 09:15 Potassium Chloride 10 Meq Er Tablet PO 10 meq BID WILMAN Administration Rosuvastatin Calcium 40 mg 09/28/24 09:00 09/28/24 09:15 Rosuvastatin 20 Mg Tablet PO 40 mg DAILY WILMAN Administration Senna 17.2 mg 09/27/24 19:40 Sennosides 8.6 Mg Tablet PO DAILY PRN constipation Sertraline HCl 100 mg 09/28/24 09:00 09/28/24 09:15 Sertraline Hcl 50 Mg Tablet PO 100 mg DAILY WILMAN Administration Tramadol HCl 50 mg 09/27/24 19:40 Tramadol Hcl (*Crx) 50 Mg Tablet PO Q8H PRN pain 4-6 Vitamin D 2,000 units 09/28/24 09:00 09/28/24 09:14 Cholecalciferol 1,000 Units Tablet PO 2,000 units DAILY WILMAN Administration Radiology Results: ITS Impressions Chest X-Ray 09/27/24 08:26 Impression: 1: Bibasilar airspace disease, suspicious for pneumonia. 2: Small right pleural effusion. Labs Labs: Laboratory Results - last 24 hr 09/27/24 09/27/24 09/27/24 12:04 19:46 20:07 WBC RBC Hgb Hct MCV MCH MCHC RDW Plt Count MPV Immature Gran % (Auto) Neut % (Auto) Lymph % (Auto) [place] % (Auto) Eos % (Auto) Baso % (Auto) Lymph # (Auto) [place] # (Auto) Eos # (Auto) Baso # (Auto) Abs Immat Gran (auto) Absolute Neuts (auto) Absolute Nucleated RBC Nucleated RBC % Platelet Estimate % Immature Plt Fraction Anisocytosis Ovalocytes Conifer Cells Schistocytes Sodium Potassium Chloride Carbon Dioxide Anion Gap BUN Creatinine Estim Creat Clear Calc Estimated GFR Glucose POC Capillary Glucose 86 Hemoglobin A1c Calcium Troponin I 0.070 H* 0.052 H* D TSH (Reflex) 09/28/24 09/28/24 09/28/24 04:10 04:18 07:36 WBC 3.5 L RBC 4.29 L Hgb 11.4 L Hct 38.4 L MCV 89.5 MCH 26.6 MCHC 29.7 L RDW 16.7 H Plt Count 73 L MPV 10.1 Immature Gran % (Auto) 0.6 H Neut % (Auto) 69.4 Lymph % (Auto) 18.7 [place] % (Auto) 10.7 H Eos % (Auto) 0.6 Baso % (Auto) 0.0 L Lymph # (Auto) 0.65 L [place] # (Auto) 0.4 Eos # (Auto) 0.0 Baso # (Auto) 0.0 Abs Immat Gran (auto) 0.02 Absolute Neuts (auto) 2.4 Absolute Nucleated RBC 0.000 Nucleated RBC % 0.0 Platelet Estimate Decreased % Immature Plt Fraction 2.2 Anisocytosis 1+ Ovalocytes 1+ Conifer Cells 1+ Schistocytes None seen Sodium 137 Potassium 3.6 Chloride 102 Carbon Dioxide 23 Anion Gap 12 BUN 23 H Creatinine 0.84 Estim Creat Clear Calc 63 Estimated GFR > 60 Glucose 99 POC Capillary Glucose 135 H Hemoglobin A1c 5.9 H Calcium 8.3 L Troponin I TSH (Reflex) 1.620
[2024-09-28 11:15] LABS: Glucose Point of Care 103 mg/dl (65-105)
[2024-09-28 16:37] LABS: Glucose Point of Care 99 mg/dl (65-105)
[2024-09-28] MEDS: FUROSEMIDE INJ 40 MG/4 ML VIAL IV PUSH (17:21)
[2024-09-28] MEDS: MEMANTINE 10 MG TABLET PO (17:22)
[2024-09-28] MEDS: MELATONIN 3 MG TABLET PO (21:31)
[2024-09-28] MEDS: APIXABAN 5 MG TABLET PO (21:31)
[2024-09-28] MEDS: DICLOFENAC SODIUM 1% 100 GM GEL (*BKC) 1 APPLIC TOPICAL (21:31)
[2024-09-29] VITALS (23 sets, daily range): BP systolic 118–129; BP diastolic 58–66; PULSE 60–83; RESP 16–22; TEMP 37–37.3; O2SAT 93–97
[2024-09-29] MEDS: IPRATROPIUM 0.5 MG/ALBUTEROL SULFATE 2.5 MG AMPUL.NEB 3 ML INHALATION ×4 (01:57→21:00)
--- NOTE | 2024-09-29 06:06 | PC.NURSE ---
Patient declined a finger stick last night for a glucose check, states he is not diabetic. A1C was checked and was 5.9.
[2024-09-29] MEDS: polyethylene glycoL 3350 17 GM POWD.PACK PO (08:42)
[2024-09-29] MEDS: ROSUVASTATIN 20 MG TABLET 40 MG PO (08:43)
[2024-09-29] MEDS: SERTRALINE HCL 50 MG TABLET 100 MG PO (08:43)
[2024-09-29] MEDS: CHOLECALCIFEROL 1,000 UNITS TABLET 2000 UNITS PO (08:43)
[2024-09-29] MEDS: FINASTERIDE 5 MG TABLET PO (08:44)
[2024-09-29] MEDS: FERROUS SULFATE 325 MG TABLET DR BY MOUTH (08:44)
[2024-09-29] MEDS: ASPIRIN 81 MG CHEWABLE TABLET PO (08:44)
[2024-09-29] MEDS: OSELTAMIVIR PHOSPHATE 75 MG CAPSULE PO ×2 (08:44→21:27)
[2024-09-29] MEDS: POTASSIUM CHLORIDE 10 MEQ ER TABLET PO ×2 (08:45→17:06)
[2024-09-29] MEDS: APIXABAN 5 MG TABLET PO ×2 (08:45→21:27)
[2024-09-29] MEDS: PANTOPRAZOLE 40 MG TABLET PO (08:45)
[2024-09-29] MEDS: FUROSEMIDE INJ 40 MG/4 ML VIAL IV PUSH (08:46)
[2024-09-29 08:48] LABS: Glucose Point of Care 103 mg/dl (65-105)
[2024-09-29] MEDS: AZITHROMYCIN 500 MG/NS 250 ML 500 MG/250 ML BAG 250 MG IVPB (09:15)
--- NOTE | 2024-09-29 10:12 | P.PNIM_ITS ---
Progress Note: A&P Assessment and Plan (1) HTN (hypertension): Qualifiers: Hypertension type: unspecified Qualified Code(s): I10 - Essential (primary) hypertension Code(s): I10 - Essential (primary) hypertension Status: Chronic (2) Elevated troponin: Code(s): R79.89 - Other specified abnormal findings of blood chemistry Status: Acute (3) Diabetes: Qualifiers: Diabetes mellitus complication status: without complication Diabetes mellitus drum maker insulin use: without mcfp use Diabetes mellitus type: type 2 Qualified Code(s): E11.9 - Type 2 diabetes mellitus without complications Code(s): E11.9 - Type 2 diabetes mellitus without complications Status: Chronic (4) Pneumonia: Qualifiers: Pneumonia type: due to influenza A virus Qualified Code(s): J10.00 - Influenza due to other identified influenza virus with unspecified type of pneumonia Code(s): J18.9 - Pneumonia, unspecified organism Status: Acute (5) Acute hypoxemic respiratory failure: Code(s): J96.01 - Acute respiratory failure with hypoxia Status: Acute (6) Influenza A: Code(s): J10.1 - Influenza due to other identified influenza virus with other respiratory manifestations Status: Acute Plan Acute hypoxemic respiratory failure: Code(s): J96.01 - Acute respiratory failure with hypoxia Status: Acute Assessment and Plan: new supplemental O2 requirement, currently requiring 2L NC. wean as tolerated and maintain sat above 92%. Possible due to pneumonia and fluid overload because of CHF . Pneumonia: Qualifiers: Pneumonia type: due to influenza A virus Qualified Code(s): J10.00 - Influenza due to other identified influenza virus with unspecified type of pneumonia Code(s): J18.9 - Pneumonia, unspecified organism Status: Acute Assessment and Plan: Chest x-ray showed: Bibasilar airspace disease, suspicious for pneumonia. Small right pleural effusion Consistent with community-acquired pneumonia. Continue Azithromycin and ceftriaxone on 09/27 - Viral PCR positive for flu A Started Tamiflu p.o. 09/27 Acute on chronic diastolic heart failure , aortic stenosis BNP elevated with effusion seen on CXR. echo 09/27 Left ventricular systolic function is preserved, estimated at 50-55%. Also s uspecting moderate to severe aortic stenosis. The left ventricular diastolic function is grade IV diastolic dysfunction. history of CHF on Bumex 0.5 mg b.i.d. but does not appear volume overloaded on exam. Monitor I&Os and daily weight Started Lasix 40 mg b.i.d. IV push 09/28 Consult promotional representative for evaluation treatment Elevated troponin: Code(s): R79.89 - Other specified abnormal findings of blood chemistry Status: Acute Assessment and Plan: - EKG, initial: Electronic ventricular pacemaker, rate 63. No previous available for comparison. - CXR concerning for pneumonia and small pleural effusion - Troponin: 0.078 -> 0.070 - echo ordered, pleural effusion on imaging and elevated BNP - telemetry monitoring Suspect mild troponin leak secondary to new hypoxia. Consult promotional representative Pancytopenia White blood cell 3.5 1000, hemoglobin 11.4, platelet 73 Possible due to infection Follow-up CBC, thrombocytopenia is improving, will blood cell count stable Diabetes: Qualifiers: Diabetes mellitus type: type 2 Diabetes mellitus drum maker insulin use: without mcfp use Diabetes mellitus complication status: without complication Qualified Code(s): E11.9 - Type 2 diabetes mellitus without complications Code(s): E11.9 - Type 2 diabetes mellitus without complications Status: Chronic Assessment and Plan: Initial glucose 125. No home medications listed from retirement paperwork. - hypoglycemia protocol - POC blood glucose ACHS - correct regimen ordered - low dose TIDWM, based off total daily insulin - A1C ordered HTN (hypertension): Qualifiers: Hypertension type: unspecified Qualified Code(s): I10 - Essential (primary) hypertension Code(s): I10 - Essential (primary) hypertension Status: Chronic Assessment and Plan: - chronic, currently 126/55 - no current antihypertensive medications, is on diuretic (Bumex 0.5 mg b.i.d.) - monitor Subjective Date/time seen: 09/29/24 10:12 Interval history: Patient is afebrile, blood pressure stable, patient is on 2 L oxygen. Labs showed pancytopenia. Patient still has cough with scant phlegm, patient feels better today, still has significant dyspnea with exertion. Patient denies abdomen pain nausea vomiting diarrhea. Exam Narrative: GENERAL: Pleasant, in no acute distress. Well-nourished. - EYES: EOMI. Anicteric. - HENT: Moist mucous membranes. - LUNGS: Coarse breath sound bilateral base, no wheezing, rhonchi, or rales. - CARDIOVASCULAR: Regular rate and rhyth m. No murmur. No JVD. - ABDOMEN: Soft, non-tender and non-dist ended. No palpable masses. - EXTREMITIES: No edema. Peripheral puls es 2+. Non-tender. - NEUROLOGIC: No focal neurological defi cits. CN II-XII grossly intact. - PSYCHIATRIC: Awake, Alert and oriented x 3. Appropriate mood and affect. - SKIN: No rashes or lesions. Warm. - LYMPH: No cervical lymphadenopathy. Objective Data Vital Signs Vital Signs: Vital Signs - 24 hr 09/28/24 11:57 09/28/24 12:00 09/28/24 14:00 Temperature 98.2 F Pulse Rate 60 63 60 Respiratory Rate 20 Blood Pressure 134/72 Pulse Oximetry 98 Oxygen Delivery Oxygen Flow Rate 09/28/24 14:40 09/28/24 14:50 09/28/24 16:00 Temperature Pulse Rate 64 66 60 Respiratory Rate 18 18 Blood Pressure Pulse Oximetry Oxygen Delivery Oxygen Flow Rate 09/28/24 16:03 09/28/24 18:00 09/28/24 20:00 Temperature 98.2 F 98.2 F Pulse Rate 62 61 71 Respiratory Rate 20 20 Blood Pressure 138/64 140/66 Pulse Oximetry 98 98 Oxygen Delivery Oxygen Flow Rate 09/28/24 20:00 09/28/24 20:22 09/28/24 20:22 Temperature Pulse Rate 60 61 Respiratory Rate 16 Blood Pressure Pulse Oximetry 95 Oxygen Delivery Nasal Cannula Oxygen Flow Rate 2 09/28/24 20:28 09/28/24 21:30 09/28/24 22:00 Temperature Pulse Rate 67 65 Respiratory Rate 16 Blood Pressure Pulse Oximetry Oxygen Delivery Room Air Oxygen Flow Rate 09/29/24 00:00 09/29/24 00:00 09/29/24 00:15 Temperature 99.1 F Pulse Rate 60 62 Respiratory Rate 18 Blood Pressure 126/61 Pulse Oximetry 95 Oxygen Delivery Room Air Oxygen Flow Rate 09/29/24 01:58 09/29/24 02:00 09/29/24 02:05 Temperature Pulse Rate 73 68 69 Respiratory Rate 16 16 Blood Pressure Pulse Oximetry Oxygen Delivery Oxygen Flow Rate 09/29/24 04:00 09/29/24 04:00 09/29/24 04:10 Temperature 98.6 F Pulse Rate 60 68 Respiratory Rate 18 Blood Pressure 118/58 L Pulse Oximetry 97 Oxygen Delivery Room Air Oxygen Flow Rate 09/29/24 06:00 09/29/24 07:41 09/29/24 07:41 Temperature Pulse Rate 62 62 Respiratory Rate 20 Blood Pressure Pulse Oximetry 94 Oxygen Delivery Room Air Oxygen Flow Rate 09/29/24 07:58 09/29/24 08:18 Temperature 98.8 F Pulse Rate 65 61 Respiratory Rate 20 20 Blood Pressure 124/64 Pulse Oximetry 94 Oxygen Delivery Oxygen Flow Rate Intake/Output Intake/Output: Intake & Output 09/26/24 09/27/24 09/28/24 09/29/24 23:59 23:59 23:59 23:59 Intake Total 2130 1620 950 Output Total 930 138 2882 Balance 1830 770 -50 Meds/Results Medications: Active Medications Generic Name Dose Route Start Last Admin Trade Name Freq PRN Reason Stop Dose Admin Acetaminophen 650 mg 09/27/24 13:00 09/28/24 00:02 Acetaminophen 325 Mg Tablet PO 650 mg Q4H PRN Administration Mild Pain (1-3) or Fever Albuterol/Ipratropium 3 ml 09/27/24 14:00 09/29/24 07:41 Ipratropium 0.5 Mg/Albuterol Sulfate 2.5 Mg Ampul.Neb 3 Ml INHALATION 3 ml Q6HRT [facility]ILMAN Administration Albuterol/Ipratropium 3 ml 09/27/24 14:08 Ipratropium 0.5 Mg/Albuterol Sulfate 2.5 Mg Ampul.Neb 3 Ml INHALATION Q6HRT PRN Shortness Of Breath Or Wheezing Apixaban 5 mg 09/28/24 09:00 09/29/24 08:45 Apixaban 5 Mg Tablet PO 5 mg Q12HR WILMAN Administration Aspirin 81 mg 09/28/24 09:00 09/29/24 08:44 Aspirin 81 Mg Chewable Tablet PO 81 mg DAILY WILMAN Administration Benzonatate 100 mg 09/27/24 14:08 09/28/24 00:02 Benzonatate 100 Mg Capsule PO 100 mg TID PRN Administration Cough Dextrose 12.5 gm 09/27/24 19:43 Dextrose 50% 25 Gm/50 Ml Syringe IV PUSH PRN PRN Hypoglycemia Protocol Diclofenac Sodium 1 applic 09/27/24 19:40 09/28/24 21:31 Diclofenac Sodium 1% 100 Gm Gel (*Bkc) TOPICAL 1 applic QID PRN Administration pain Ferrous Sulfate 325 mg 09/28/24 09:00 09/29/24 08:44 Ferrous Sulfate [address] BY MOUTH 325 mg DAILY WILMAN Administration Finasteride 5 mg 09/28/24 09:00 09/29/24 08:44 Finasteride 5 Mg Tablet PO 5 mg DAILY [facility]MAN Administration Furosemide 40 mg 09/28/24 10:35 09/29/24 08:46 Furosemide Inj 40 Mg/4 Ml Vial IV PUSH 40 mg BID WILMAN Administration Glucagon 1 mg 09/27/24 19:43 Glucagon For Inj 1 Mg Vial IM PRN PRN Hypoglycemia Protocol Glucose 15 gm 09/27/24 19:43 Glucose Oral Gel 15 Gm Of Glucse In 37.5 Gm Tube PO PRN PRN Hypoglycemia Protocol Guaifenesin 600 mg 09/27/24 14:08 09/28/24 00:02 Guaifenesin 12 Hr 600 Mg Tabcr PO 600 mg Q12HR PRN Administration Congestion Ceftriaxone Sodium 1 gm in 50 mls @ 100 mls/hr 09/28/24 09:00 09/29/24 09:12 Rocephin 1 Gm/Ns 50 Ml IVPB Infused Q24H [facility]MAN Infusion Azithromycin 500 mg in 250 mls @ 250 mls/hr 09/28/24 09:00 09/29/24 09:15 Zithromax IVPB 250 mls/hr Q24H [facility] Administration Dextrose 1,000 mls @ 100 mls/hr 09/27/24 19:43 Dextrose 5% 1,000 Ml IVPB PRN PRN Hypoglycemia Protocol Insulin Aspart 2 - 5 units 09/28/24 08:00 09/29/24 08:46 Insulin Aspart (*Bk) 100 Units/Ml SUB-Q Not Given TIDWM [facility] Protocol Melatonin 3 mg 09/27/24 21:00 09/28/24 21:31 Melatonin 3 Mg Tablet PO 3 mg HS WILMAN Administration Memantine 10 mg 09/28/24 18:00 09/28/24 17:22 Memantine 10 Mg Tablet PO 10 mg QPM WILMAN Administration Miscellaneous Information 1 each 09/27/24 00:01 09/28/24 17:[address] Of Application Needed And Specify Type Of Pain XX 10/27/24 00:00 Not Given CLARIFY [facility]ILMAN Miscellaneous Information 1 each 09/27/24 00:01 09/28/24 17:59 Nonformulary Drug (Galantamine 24 Mg Capsule,Ext Rel. Pellets 24 Hr) Is Non Formulary Can XX 10/27/24 00:00 Not Given CLARIFY [facility] Miscellaneous Information 1 each 09/27/24 00:01 09/28/24 17:59 Nonformulary Drug (Lidocaine [Asperflex (Lidocaine)] 4 % Cream). Use From H ome Or We Stoc XX 10/27/24 00:00 Not Given CLARIFY [facility] Non-Formulary Medication 24 mg 09/28/24 09:00 Galantamine PO 10/28/24 08:59 DAILY [facility] Non-Formulary Medication 1 applic 09/27/24 19:40 Lidocaine [Asperflex (Lidocaine)] TOPICAL Q8H PRN pain Oseltamivir Phosphate 75 mg 09/27/24 21:00 09/29/24 08:44 Oseltamivir Phosphate 75 Mg Capsule PO 10/02/24 20:59 75 mg Q12HR [facility]ILMAN Administration Pantoprazole Sodium 40 mg 09/28/24 09:00 09/29/24 08:45 Pantoprazole 40 Mg Tablet PO 40 mg DAILY WILMAN Administration Perflutren Lipid Microsphere 0 ml 09/27/24 14:08 Perflutren Lipid Microspheres 1.5 Ml Vial Diluted To 10 Ml Total Volume IV PUSH 09/30/24 14:08 ONCE PRN adequate visualization Protocol Polyethylene Glycol 17 gm 09/27/24 19:40 09/29/24 08:42 Polyethylene Glycol 3350 17 Gm Powd.Pack PO 17 gm DAILY PRN Administration constipation Potassium Chloride 10 meq 09/28/24 09:00 09/29/24 08:45 Potassium Chloride 10 Meq Er Tablet PO 10 meq BID WILMAN Administration Rosuvastatin Calcium 40 mg 09/28/24 09:00 09/29/24 08:43 Rosuvastatin 20 Mg Tablet PO 40 mg DAILY WILMAN Administration Senna 17.2 mg 09/27/24 19:40 Sennosides 8.6 Mg Tablet PO DAILY PRN constipation Sertraline HCl 100 mg 09/28/24 09:00 09/29/24 08:43 Sertraline Hcl 50 Mg Tablet PO 100 mg DAILY WILMAN Administration Tramadol HCl 50 mg 09/27/24 19:40 Tramadol Hcl (*Crx) 50 Mg Tablet PO Q8H PRN pain 4-6 Vitamin D 2,000 units 09/28/24 09:00 09/29/24 08:43 Cholecalciferol 1,000 Units Tablet PO 2,000 units DAILY WILMAN Administration Radiology Results: ITS Impressions Chest X-Ray 09/27/24 08:26 Impression: 1: Bibasilar airspace disease, suspicious for pneumonia. 2: Small right pleural effusion. Labs Labs: Laboratory Results - last 24 hr 09/28/24 09/28/24 09/29/24 11:08 16:33 07:26 POC Capillary Glucose 103 99 103
--- NOTE | 2024-09-29 10:30 | P.CONCA_ITS ---
Assessment and Plan Assessment and plan (1) Elevated troponin: Code(s): R79.89 - Other specified abnormal findings of blood chemistry Status: Acute Plan Acute shortness of breath likely related to underlying viral pneumonia Chronic diastolic heart failure currently compensated AFib rate controlled Mild elevated troponin with no evidence of as likely related to acute hypoxemia and pneumonia History of CABG was no evidence of ACS History of TAVR 2015 History of ICD and prior concern for ICD infection April 2024 Dementia Plan DC IV Lasix and resume home dose of oral diuretic Bumex 0.5 mg b.i.d. Continue apixaban 5 mg b.i.d. Metoprolol XL 25 mg daily Continue statin History of Present Illness History of Present Illness Consult date/time: 09/29/24 10:30 Reason For Visit: Pneumonia/Hypoxia/Elevated Troponin/Influenza Narrative: Patient is poor historian much of the information was obtained from the chart review. Patient with history of atrial fibrillation CHF coronary artery disease. He presents to the hospital because of progressive shortness of breath for several days, but was severe. Patient lives in a residential. He has been having lower extremity swelling. Who was in his also CHF and start IV Lasix with partial improvement of symptoms. Patient has history of CABG 1998 and has a history of TAVR 2015. He has a history of VT and status post ICD in 2016. He has a history of possible ICD infection and deemed not a candidate for this device extraction May 08. Patient also has history of dementia Review of Systems 2 Review of Systems: All systems reviewed & are unremarkable except as noted in HPI and below PMFSH Past Medical History Medical History Depression Anxiety Diabetes Anemia Arthritis Renal disease GERD (gastroesophageal reflux disease) Emphysema, unspecified BPH (benign prostatic hyperplasia) Myocardial infarction HTN (hypertension) HLD (hyperlipidemia) CAD (coronary artery disease) CHF (congestive heart failure) Atrial fibrillation Dementia Surgical History Surgical History History of permanent cardiac pacemaker placement Social History Social History Smoking status: Never smoker Alcohol intake: former Substance use: former Substance use type: marijuana Do You Feel Safe in your Home?: Yes Lack of Transportation: No Lack of Food: Never True Current Housing: I Have Housing Concerned About Future Housing: No Difficulty Paying Gas/Electric Bills: No Difficulty Paying for Meds: No Currently Unemployed: No Education: High School Diploma/GED Difficulty w/ Childcare or Family Care: No Living arrangements: residential Occupation/Education: retired Gender identity (if verbalized by the patient): Male Sexual Orientation (if Verbalized by the Patient): Straight or Heterosexual Spiritual care concerns: No Agree to blood products: Yes Meds Home Medications and Allergies Home Medications ?Medication ?Instructions ?Recorded ?Confirmed ?Type acetaminophen 325 mg tablet 650 mg PO Q6H PRN pain 09/27/24 09/27/24 History (Tylenol) amoxicillin 500 mg capsule 500 mg PO Q8H 09/27/24 09/27/24 History apixaban 5 mg tablet (Eliquis) 5 mg PO Q12H 09/27/24 09/28/24 History aspirin 81 mg chewable tablet 81 mg PO DAILY 09/27/24 09/27/24 History bumetanide 0.5 mg tablet 0.5 mg PO BID 09/27/24 09/27/24 History diclofenac sodium 1 % topical gel 2 g topical QID PRN pain 09/27/24 09/27/24 History (Arthritis Pain (diclofenac)) ergocalciferol (vitamin D2) 1,000 50 mcg PO DAILY 09/27/24 09/27/24 History unit capsule ferrous sulfate 325 mg (65 mg 325 mg PO DAILY 09/27/24 09/27/24 History iron) tablet (FeroSul) finasteride 5 mg tablet 5 mg PO DAILY 09/27/24 09/27/24 History galantamine 24 mg 24 hr 24 mg PO DAILY 09/27/24 09/27/24 History capsule,extended release lidocaine 4 % topical cream 1 applic topical Q8H PRN pain 09/27/24 09/27/24 History (AsperFlex (lidocaine)) melatonin 3 mg tablet 3 mg PO HS 09/27/24 09/27/24 History memantine 10 mg tablet 10 mg PO QPM 09/27/24 09/27/24 History pantoprazole 40 mg tablet,delayed 40 mg PO DAILY 09/27/24 09/27/24 History release polyethylene glycol 3350 17 17 g PO DAILY PRN constipation 09/27/24 09/27/24 History gram/dose oral powder potassium chloride 10 mEq 10 meq PO BID 09/27/24 09/27/24 History tablet,extended release rosuvastatin 40 mg tablet 40 mg PO DAILY 09/27/24 09/27/24 History sennosides 8.6 mg tablet (senna) 17.2 mg PO DAILY PRN constipation 09/27/24 09/27/24 History sertraline 100 mg tablet 100 mg PO DAILY 09/27/24 09/27/24 History tramadol 50 mg tablet 50 mg PO Q8H PRN pain 09/27/24 09/27/24 History Allergies Allergy/AdvReac Type Severity Reaction Status Date / Time ciprofloxacin ([facility]) Allergy Mild Other Verified 09/27/24 14:38 Vital Signs Vital Signs - 24 hr 09/28/24 11:57 09/28/24 12:00 09/28/24 14:00 Temperature 36.8 C Pulse Rate 60 63 60 Respiratory Rate 20 Blood Pressure 134/72 Pulse Oximetry 98 Oxygen Delivery Oxygen Flow Rate 09/28/24 14:40 09/28/24 14:50 09/28/24 16:00 Temperature Pulse Rate 64 66 60 Respiratory Rate 18 18 Blood Pressure Pulse Oximetry Oxygen Delivery Oxygen Flow Rate 09/28/24 16:03 09/28/24 18:00 09/28/24 20:00 Temperature 36.8 C 36.8 C Pulse Rate 62 61 71 Respiratory Rate 20 20 Blood Pressure 138/64 140/66 Pulse Oximetry 98 98 Oxygen Delivery Oxygen Flow Rate 09/28/24 20:00 09/28/24 20:22 09/28/24 20:22 Temperature Pulse Rate 60 61 Respiratory Rate 16 Blood Pressure Pulse Oximetry 95 Oxygen Delivery Nasal Cannula Oxygen Flow Rate 2 09/28/24 20:28 09/28/24 21:30 09/28/24 22:00 Temperature Pulse Rate 67 65 Respiratory Rate 16 Blood Pressure Pulse Oximetry Oxygen Delivery Room Air Oxygen Flow Rate 09/29/24 00:00 09/29/24 00:00 09/29/24 00:15 Temperature 37.3 C Pulse Rate 60 62 Respiratory Rate 18 Blood Pressure 126/61 Pulse Oximetry 95 Oxygen Delivery Room Air Oxygen Flow Rate 09/29/24 01:58 09/29/24 02:00 09/29/24 02:05 Temperature Pulse Rate 73 68 69 Respiratory Rate 16 16 Blood Pressure Pulse Oximetry Oxygen Delivery Oxygen Flow Rate 09/29/24 04:00 09/29/24 04:00 09/29/24 04:10 Temperature 37.0 C Pulse Rate 60 68 Respiratory Rate 18 Blood Pressure 118/58 L Pulse Oximetry 97 Oxygen Delivery Room Air Oxygen Flow Rate 09/29/24 06:00 09/29/24 07:41 09/29/24 07:41 Temperature Pulse Rate 62 62 Respiratory Rate 20 Blood Pressure Pulse Oximetry 94 Oxygen Delivery Room Air Oxygen Flow Rate 09/29/24 07:58 09/29/24 08:18 Temperature 37.1 C Pulse Rate 65 61 Respiratory Rate 20 20 Blood Pressure 124/64 Pulse Oximetry 94 Oxygen Delivery Oxygen Flow Rate Exam 2 Const: General: comfortable and no acute distress Other: Able to lie flat HENMT: Face/Nose/Sinus: Normal nares present and no epistaxis Mouth: Yes moist mucous membranes Eyes: Sclera: sclerae normal Pupils: Equal, round and reactive pupils present Neck: Neck: supple and no JVD Carotids: no bruits Resp: Auscultation: rhonchi lower bilaterally and lung sounds not diminished Other: No chest wall tenderness Cardio: Rate: tachycardic Rhythm: abnormal rhythm irregularly irregular Heart sounds: no gallops, no murmurs and no rubs Other: Ejection systolic murmur at the base GI: GI Palp: Yes Soft to palpation and No Tenderness to palpation present (GI) Auscultation: normal bowel sounds Skin: General skin exam: normal color, rashes and/or lesions noted and no erythema Other: Warm Neuro: Cranial nerves: Yes Equal, round and reactive pupils present Speech: normal speech Other: No obvious focal deficit or facial asymmetry Extrem: General: no edema Other: Normal capillary refills Intact distal pulses. Results Labs and Meds 09/28/24 04:18 09/28/24 04:18 Lab results: Intake and Output 09/28/24 09/29/24 09/29/24 23:59 07:59 15:59 Intake Total 590 700 250 Output Total 650 1000 Balance -60 -300 250 Intake: IV 50 [id number] 1 GM/NS 50 ML 1 gm 50 In 50 ml @ 100 mls/hr IVPB Q24H WILMAN Rx#:[id number] Oral 590 700 200 Output: Urine 650 1000 Patient Weight 09/29/24 23:59 Weight 83.8 kg
[2024-09-29 10:50] LABS: Basophils Percent Auto 0.3 % (0.2-1.2); Eosinophils Absolute Auto 0.1 K/mm3 (0-0.3); Eosinophils Percent Auto 2.8 % (0-4.4); Hematocrit 39.4 % (42.0-52.0); Hemoglobin 12.2 g/dL (14.0-18.0); Immature Granulocyte Absolute 0.01 K/mm3 (0.00-0.031); Immature Granulocyte Percent A 0.3 % (0-0.5); Immature Platelet Fraction Pct 2.7 % (0.9-11.2); Lymphocytes Absolute Auto 0.54 K/mm3 (0.9-3.2); Lymphocytes Percent Auto 16.8 % (18.3-44.2); Mean Corpuscular Hemoglobin 26.3 pg (26-34); Mean Corpuscular Volume 84.9 fl (80-100); Mean Platelet Volume 9.6 fl (7.4-10.4); Monocytes Absolute Auto 0.3 K/mm3 (0.1-0.6); Neutrophils Absolute Auto 2.3 K/mm3 (1.3-6.7); Neutrophils Percent Auto 70.8 % (45.5-73.1); Platelet Count Result 103 k/mm3 (150-375); Red Blood Count 4.64 M/mm3 (4.6-6.20); Red Cell Distribution Width 16.3 % (11.5-14.5); White Blood Count 3.2 K/mm3 (4.5-10.0)
[2024-09-29 10:59] LABS: Anion Gap 14 mmol/L (4-12); Blood Urea Nitrogen 25 mg/dL (9-20); Calcium 8.7 mg/dL (8.4-10.2); Carbon Dioxide 28 mmol/L (22-30); Chloride 97 mmol/L (98-107); Estimated CRCL calculation 51 ml/min; Estimated Glomerular Filt Rate > 60; Glucose 123 mg/dL (65-110); Potassium 3.7 mmol/L (3.4-5.0); Sodium 139 mmol/L (137-145)
[2024-09-29] MEDS: MEMANTINE 10 MG TABLET PO (17:06)
[2024-09-29] MEDS: DICLOFENAC SODIUM 1% 100 GM GEL (*BKC) 1 APPLIC TOPICAL (21:28)
[2024-09-29] MEDS: MELATONIN 3 MG TABLET PO (21:28)
[2024-09-30] VITALS (10 sets, daily range): BP systolic 110–136; BP diastolic 56–77; PULSE 60–73; RESP 16–20; TEMP 36.3–37.2; O2SAT 94–100
[2024-09-30] MEDS: IPRATROPIUM 0.5 MG/ALBUTEROL SULFATE 2.5 MG AMPUL.NEB 3 ML INHALATION ×2 (01:59→07:01)
[2024-09-30 08:44] LABS: Basophils Percent Auto 0.6 % (0.2-1.2); Eosinophils Absolute Auto 0.1 K/mm3 (0-0.3); Eosinophils Percent Auto 3.9 % (0-4.4); Hematocrit 40.6 % (42.0-52.0); Hemoglobin 12.4 g/dL (14.0-18.0); Immature Granulocyte Absolute 0.01 K/mm3 (0.00-0.031); Immature Granulocyte Percent A 0.3 % (0-0.5); Lymphocytes Absolute Auto 0.74 K/mm3 (0.9-3.2); Lymphocytes Percent Auto 22.2 % (18.3-44.2); Mean Corpuscular HGB Conc 30.5 g/dl (32-36); Mean Corpuscular Hemoglobin 26.1 pg (26-34); Mean Corpuscular Volume 85.5 fl (80-100); Mean Platelet Volume 9.1 fl (7.4-10.4); Monocytes Absolute Auto 0.3 K/mm3 (0.1-0.6); Monocytes Percent Auto 8.4 % (2.6-8.5); Neutrophils Absolute Auto 2.2 K/mm3 (1.3-6.7); Neutrophils Percent Auto 64.6 % (45.5-73.1); Platelet Count Result 106 k/mm3 (150-375); Red Blood Count 4.75 M/mm3 (4.6-6.20); White Blood Count 3.3 K/mm3 (4.5-10.0)
[2024-09-30 08:54] LABS: Anion Gap 11 mmol/L (4-12); Blood Urea Nitrogen 24 mg/dL (9-20); Calcium 9.5 mg/dL (8.4-10.2); Carbon Dioxide 30 mmol/L (22-30); Chloride 99 mmol/L (98-107); Estimated CRCL calculation 56 ml/min; Estimated Glomerular Filt Rate > 60; Glucose 117 mg/dL (65-110); Potassium 4.1 mmol/L (3.4-5.0); Sodium 140 mmol/L (137-145)
--- NOTE | 2024-09-30 09:23 | PM.IMPN ---
Progress Note: A&P Assessment and Plan (1) HTN (hypertension): Qualifiers: Hypertension type: unspecified Qualified Code(s): I10 - Essential (primary) hypertension Code(s): I10 - Essential (primary) hypertension Status: Chronic (2) Elevated troponin: Code(s): R79.89 - Other specified abnormal findings of blood chemistry Status: Acute (3) Diabetes: Qualifiers: Diabetes mellitus complication status: without complication Diabetes mellitus intermodal customer service insulin use: without mcc use Diabetes mellitus type: type 2 Qualified Code(s): E11.9 - Type 2 diabetes mellitus without complications Code(s): E11.9 - Type 2 diabetes mellitus without complications Status: Chronic (4) Pneumonia: Qualifiers: Pneumonia type: due to influenza A virus Qualified Code(s): J10.00 - Influenza due to other identified influenza virus with unspecified type of pneumonia Code(s): J18.9 - Pneumonia, unspecified organism Status: Acute (5) Acute hypoxemic respiratory failure: Code(s): J96.01 - Acute respiratory failure with hypoxia Status: Acute (6) Influenza A: Code(s): J10.1 - Influenza due to other identified influenza virus with other respiratory manifestations Status: Acute Plan Acute hypoxemic respiratory failure: Code(s): J96.01 - Acute respiratory failure with hypoxia Status: Acute Assessment and Plan: new supplemental O2 requirement, currently requiring 2L NC. wean as tolerated and maintain sat above 92%. Possible due to pneumonia and fluid overload because of CHF Chronic patient is on room air, hypoxemia has resolved . Pneumonia: Qualifiers: Pneumonia type: due to influenza A virus Qualified Code(s): J10.00 - Influenza due to other identified influenza virus with unspecified type of pneumonia Code(s): J18.9 - Pneumonia, unspecified organism Status: Acute Assessment and Plan: Chest x-ray showed: Bibasilar airspace disease, suspicious for pneumonia. Small right pleural effusion Consistent with community-acquired pneumonia. Continue Azithromycin and ceftriaxone on 09/27 - Viral PCR positive for flu A Started Tamiflu p.o. 09/27 Continue Tamiflu azithromycin and ceftriaxone for 5 days on discharge Acute on chronic diastolic heart failure , aortic stenosis BNP elevated with effusion seen on CXR. echo 09/27 Left ventricular systolic function is preserved, estimated at 50-55%. Also suspecting moderate to severe aortic stenosis. The left ventricular diastolic function is grade IV diastolic dysfunction. history of CHF on Bumex 0.5 mg b.i.d. but does not appear volume overloaded on exam. Monitor I&Os and daily weight Started Lasix 40 mg b.i.d. 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 Metoprolol XL 25 mg daily Continue statin Compensated, resume Bumex 0.5 mg b.i.d. p.o. Elevated troponin: Code(s): R79.89 - Other specified abnormal findings of blood chemistry Status: Acute Assessment and Plan: - EKG, initial: Electronic ventricular pacemaker, rate 63. No previous available for comparison. - CXR concerning for pneumonia and small pleural effusion - Troponin: 0.078 -> 0.070 - echo ordered, pleural effusion on imaging and elevated BNP - telemetry monitoring Suspect mild troponin leak secondary to new hypoxia. Consult building construction professor Pancytopenia White blood cell 3.5 1000, hemoglobin 11.4, platelet 73 Possible due to infection Follow-up CBC, thrombocytopenia is improving, white l blood cell count stable, May Refer to heme oncologist of outpatient follow-up per primary care provider Diabetes: Qualifiers: Diabetes mellitus type: type 2 Diabetes mellitus mcc insulin use: without intermodal customer service use Diabetes mellitus complication status: without complication Qualified Code(s): E11.9 - Type 2 diabetes mellitus without complications Code(s): E11.9 - Type 2 diabetes mellitus without complications Status: Chronic Assessment and Plan: Initial glucose 125. No home medications listed from detention paperwork. - hypoglycemia protocol - POC blood glucose ACHS - correct regimen ordered - low dose TIDWM, based off total daily insulin - A1C ordered Continue home medication discharge HTN (hypertension): Qualifiers: Hypertension type: unspecified Qualified Code(s): I10 - Essential (primary) hypertension Code(s): I10 - Essential (primary) hypertension Status: Chronic Assessment and Plan: - chronic, currently 126/55 - no current antihypertensive medications, is on diuretic (Bumex 0.5 mg b.i.d.) - monitor Blood pressure is controlled in the target range Subjective Date/time seen: 09/30/24 09:23 Interval history: Patient is afebrile, blood pressure stable, patient is on room air Labs showed pancytopenia,. Patient still has cough with scant phlegm, patient feels better today, still has significant dyspnea with exertion. Patient denies abdomen pain nausea vomiting diarrhea. Exam Narrative: GENERAL: Pleasant, in no acute distress. Well-nourished. - EYES: EOMI. Anicteric. - HENT: Moist mucous membranes. - LUNGS: Coarse breath sound bilateral base, no wheezing, rhonchi, or rales. - CARDIOVASCULAR: Regular rate and rhythm. No murmur. No JVD. - ABDOMEN: Soft, non-tender and non-distended. No palpable masses. - EXTREMITIES: No edema. Peripheral pulses 2+. Non-tender. - NEUROLOGIC: No focal neurological deficits. CN II-XII grossly intact. - PSYCHIATRIC: Awake, Alert and oriented x 3. Appropriate mood and affect. - SKIN: No rashes or lesions. Warm. - LYMPH: No cervical lymphadenopathy. Objective Data Vital Signs Vital Signs: Vital Signs - 24 hr 09/29/24 10:00 09/29/24 11:37 09/29/24 12:00 Temperature 98.8 F Pulse Rate 60 62 64 Respiratory Rate 20 Blood Pressure 118/62 Pulse Oximetry 94 Oxygen Delivery 09/29/24 14:00 09/29/24 14:01 09/29/24 14:21 Temperature Pulse Rate 61 81 83 Respiratory Rate 20 20 Blood Pressure Pulse Oximetry Oxygen Delivery 09/29/24 16:00 09/29/24 16:46 09/29/24 18:00 Temperature 98.8 F Pulse Rate 62 66 64 Respiratory Rate 22 H Blood Pressure 129/66 Pulse Oximetry 96 Oxygen Delivery 09/29/24 20:00 09/29/24 20:00 09/29/24 21:00 Temperature 98.8 F Pulse Rate 61 62 62 Respiratory Rate 22 H 20 Blood Pressure 128/66 Pulse Oximetry 96 Oxygen Delivery 09/29/24 21:00 09/29/24 21:12 09/29/24 21:25 Temperature Pulse Rate 65 Respiratory Rate 20 Blood Pressure Pulse Oximetry 93 Oxygen Delivery Room Air Room Air 09/29/24 22:00 09/30/24 00:00 09/30/24 00:00 Temperature 99.0 F Pulse Rate 62 60 Respiratory Rate 16 Blood Pressure 110/56 L Pulse Oximetry 96 Oxygen Delivery Room Air 09/30/24 00:00 09/30/24 02:00 09/30/24 02:00 Temperature Pulse Rate 63 65 62 Respiratory Rate 20 Blood Pressure Pulse Oximetry Oxygen Delivery 09/30/24 04:00 09/30/24 04:00 09/30/24 05:08 Temperature 98.6 F Pulse Rate 66 67 Respiratory Rate 18 Blood Pressure 128/63 Pulse Oximetry 97 Oxygen Delivery Room Air 09/30/24 06:00 09/30/24 07:00 09/30/24 07:00 Temperature Pulse Rate 60 72 72 Respiratory Rate 18 18 Blood Pressure Pulse Oximetry 94 Oxygen Delivery Room Air 09/30/24 07:10 Temperature Pulse Rate 73 Respiratory Rate 18 Blood Pressure Pulse Oximetry Oxygen Delivery Intake/Output Intake/Output: Intake & Output 09/27/24 09/28/24 09/29/24 09/30/24 23:59 23:59 23:59 23:59 Intake Total 2130 1620 1350 Output Total 380 666 5713 600 Balance 1830 770 -550 -600 Meds/Results Medications: Active Medications Generic Name Dose Route Start Last Admin Trade Name Freq PRN Reason Stop Dose Admin Acetaminophen 650 mg 09/27/24 13:00 09/28/24 00:02 Acetaminophen 325 Mg Tablet PO 650 mg Q4H PRN Administration Mild Pain (1-3) or Fever Albuterol/Ipratropium 3 ml 09/27/24 14:00 09/30/24 07:01 Ipratropium 0.5 Mg/Albuterol Sulfate 2.5 Mg Ampul.Neb 3 Ml INHALATION 3 ml Q6HRT WILMAN Administration Albuterol/Ipratropium 3 ml 09/27/24 14:08 Ipratropium 0.5 Mg/Albuterol Sulfate 2.5 Mg Ampul.Neb 3 Ml INHALATION Q6HRT PRN Shortness Of Breath Or Wheezing Apixaban 5 mg 09/28/24 09:00 09/29/24 21:27 Apixaban 5 Mg Tablet PO 5 mg Q12HR WILMAN Administration Aspirin 81 mg 09/28/24 09:00 09/29/24 08:44 Aspirin 81 Mg Chewable Tablet PO 81 mg DAILY WILMAN Administration Benzonatate 100 mg 09/27/24 14:08 09/28/24 00:02 Benzonatate 100 Mg Capsule PO 100 mg TID PRN Administration Cough Dextrose 12.5 gm 09/27/24 19:43 Dextrose 50% 25 Gm/50 Ml Syringe IV PUSH PRN PRN Hypoglycemia Protocol Diclofenac Sodium 1 applic 09/27/24 19:40 09/29/24 21:28 Diclofenac Sodium 1% 100 Gm Gel (*Bkc) TOPICAL 1 applic QID PRN Administration pain Ferrous Sulfate 325 mg 09/28/24 09:00 09/29/24 08:44 Ferrous Sulfate [address] BY MOUTH 325 mg DAILY WILMAN Administration Finasteride 5 mg 09/28/24 09:00 09/29/24 08:44 Finasteride 5 Mg Tablet PO 5 mg DAILY WILMAN Administration Glucagon 1 mg 09/27/24 19:43 Glucagon For Inj 1 Mg Vial IM PRN PRN Hypoglycemia Protocol Glucose 15 gm 09/27/24 19:43 Glucose Oral Gel 15 Gm Of Glucse In 37.5 Gm Tube PO PRN PRN Hypoglycemia Protocol Guaifenesin 600 mg 09/27/24 14:08 09/28/24 00:02 Guaifenesin 12 Hr 600 Mg Tabcr PO 600 mg Q12HR PRN Administration Congestion Ceftriaxone Sodium 1 gm in 50 mls @ 100 mls/hr 09/28/24 09:00 09/29/24 09:12 Rocephin 1 Gm/Ns 50 Ml IVPB Infused Q24H WILMAN Infusion Azithromycin 500 mg in 250 mls @ 250 mls/hr 09/28/24 09:00 09/29/24 09:15 Zithromax IVPB 250 mls/hr Q24H WILMAN Administration Dextrose 1,000 mls @ 100 mls/hr 09/27/24 19:43 Dextrose 5% 1,000 Ml IVPB PRN PRN Hypoglycemia Protocol Insulin Aspart 2 - 5 units 09/28/24 08:00 09/29/24 17:07 Insulin Aspart (*Bkc) 100 Units/Ml SUB-Q Not Given TIDWM WILMAN Protocol Melatonin 3 mg 09/27/24 21:00 09/29/24 21:28 Melatonin 3 Mg Tablet PO 3 mg HS WILMAN Administration Memantine 10 mg 09/28/24 18:00 09/29/24 17:06 Memantine 10 Mg Tablet PO 10 mg QPM WILMAN Administration Miscellaneous Information 1 each 09/27/24 00:01 09/28/24 17:[address] Of Application Needed And Specify Type Of Pain XX 10/27/24 00:00 Not Given [facility] Miscellaneous Information 1 each 09/27/24 00:01 09/28/24 17:59 Nonformulary Drug (Galantamine 24 Mg Capsule,Ext Rel. Pellets 24 Hr) Is Non Formulary Can XX 10/27/24 00:00 Not Given [facility] Miscellaneous Information 1 each 09/27/24 00:01 09/28/24 17:59 Nonformulary Drug (Lidocaine [Asperflex (Lidocaine)] 4 % Cream). Use From Home Or We [facility] XX 10/27/24 00:00 Not Given [facility] Non-Formulary Medication 24 mg 09/28/24 09:00 Galantamine PO 10/28/24 08:59 DAILY WILMAN Non-Formulary Medication 1 applic 09/27/24 19:40 Lidocaine [Asperflex (Lidocaine)] TOPICAL Q8H PRN pain Oseltamivir Phosphate 75 mg 09/27/24 21:00 09/29/24 21:27 Oseltamivir Phosphate 75 Mg Capsule PO 10/02/24 20:59 75 mg Q12HR WILMAN Administration Pantoprazole Sodium 40 mg 09/28/24 09:00 09/29/24 08:45 Pantoprazole 40 Mg Tablet PO 40 mg DAILY WILMAN Administration Perflutren Lipid Microsphere 0 ml 09/27/24 14:08 Perflutren Lipid Microspheres 1.5 Ml Vial Diluted To 10 Ml Total Volume IV PUSH 09/30/24 14:08 ONCE PRN adequate visualization Protocol Polyethylene Glycol 17 gm 09/27/24 19:40 09/29/24 08:42 Polyethylene Glycol 3350 17 Gm Powd.Pack PO 17 gm DAILY PRN Administration constipation Potassium Chloride 10 meq 09/28/24 09:00 09/29/24 17:06 Potassium Chloride 10 Meq Er Tablet PO 10 meq BID WILMAN Administration Rosuvastatin Calcium 40 mg 09/28/24 09:00 09/29/24 08:43 Rosuvastatin 20 Mg Tablet PO 40 mg DAILY WILMAN Administration Senna 17.2 mg 09/27/24 19:40 Sennosides 8.6 Mg Tablet PO DAILY PRN constipation Sertraline HCl 100 mg 09/28/24 09:00 09/29/24 08:43 Sertraline Hcl 50 Mg Tablet PO 100 mg DAILY WILMAN Administration Tramadol HCl 50 mg 09/27/24 19:40 Tramadol Hcl (*Crx) 50 Mg Tablet PO Q8H PRN pain 4-6 Vitamin D 2,000 units 09/28/24 09:00 09/29/24 08:43 Cholecalciferol 1,000 Units Tablet PO 2,000 units DAILY WILMAN Administration Radiology Results: ITS Impressions Chest X-Ray 09/27/24 08:26 Impression: 1: Bibasilar airspace disease, suspicious for pneumonia. 2: Small right pleural effusion. Labs Labs: Laboratory Results - last 24 hr 09/29/24 09/30/24 10:34 08:37 WBC 3.2 L 3.3 L RBC 4.64 4.75 Hgb 12.2 L 12.4 L Hct 39.4 L 40.6 L MCV 84.9 D 85.5 MCH 26.3 26.1 MCHC 31.0 L 30.5 L RDW 16.3 H 16.0 H Plt Count 103 L 106 L MPV 9.6 9.1 Immature Gran % (Auto) 0.3 0.3 Neut % (Auto) 70.8 64.6 Lymph % (Auto) 16.8 L 22.2 [place] % (Auto) 9.0 H 8.4 Eos % (Auto) 2.8 3.9 Baso % (Auto) 0.3 0.6 Lymph # (Auto) 0.54 L 0.74 L [place] # (Auto) 0.3 0.3 Eos # (Auto) 0.1 0.1 Baso # (Auto) 0.0 0.0 Abs Immat Gran (auto) 0.01 0.01 Absolute Neuts (auto) 2.3 2.2 Absolute Nucleated RBC 0.000 0.000 Nucleated RBC % 0.0 0.0 % Immature Plt Fraction 2.7 Sodium 139 140 Potassium 3.7 4.1 Chloride 97 L 99 Carbon Dioxide 28 30 Anion Gap 14 H 11 BUN 25 H 24 H Creatinine 1.05 0.96 Estim Creat Clear Calc 51 56 Estimated GFR > 60 > 60 Glucose 123 H 117 H Calcium 8.7 9.5
--- NOTE | 2024-09-30 09:31 | P.DS_ITS ---
DS: Admitting Diagnosis Discharge Date 09/30/24 Admitting Diagnosis (1) HTN (hypertension): Qualifiers: Hypertension type: unspecified Qualified Code(s): I10 - Essential (primary) hypertension Code(s): I10 - Essential (primary) hypertension Status: Chronic (2) Elevated troponin: Code(s): R79.89 - Other specified abnormal findings of blood chemistry Status: Acute (3) Diabetes: Qualifiers: Diabetes mellitus complication status: without complication Diabetes mellitus assisted insulin use: without crimping press operator use Diabetes mellitus type: type 2 Qualified Code(s): E11.9 - Type 2 diabetes mellitus without complications Code(s): E11.9 - Type 2 diabetes mellitus without complications Status: Chronic (4) Pneumonia: Qualifiers: Pneumonia type: due to influenza A virus Qualified Code(s): J10.00 - Influenza due to other identified influenza virus with unspecified type of pneumonia Code(s): J18.9 - Pneumonia, unspecified organism Status: Acute (5) Acute hypoxemic respiratory failure: Code(s): J96.01 - Acute respiratory failure with hypoxia Status: Acute (6) Influenza A: Code(s): J10.1 - Influenza due to other identified influenza virus with other respiratory manifestations Status: Acute DS: Discharge Diagnosis Discharge Diagnosis (1) HTN (hypertension): Qualifiers: Hypertension type: unspecified Qualified Code(s): I10 - Essential (primary) hypertension Code(s): I10 - Essential (primary) hypertension Status: Chronic (2) Elevated troponin: Code(s): R79.89 - Other specified abnormal findings of blood chemistry Status: Acute (3) Diabetes: Qualifiers: Diabetes mellitus type: type 2 Diabetes mellitus crimping press operator insulin use: without assisted use Diabetes mellitus complication status: without compl ication Qualified Code(s): E11.9 - Type 2 diabetes mellitus without complications Code(s): E11.9 - Type 2 diabetes mellitus without complications Status: Chronic (4) Pneumonia: Qualifiers: Pneumonia type: due to influenza A virus Qualified Code(s): J10.00 - Influenza due to other identified influenza virus with unspecified type of pneumonia Code(s): J18.9 - Pneumonia, unspecified organism Status: Acute (5) Acute hypoxemic respiratory failure: Code(s): J96.01 - Acute respiratory failure with hypoxia Status: Acute (6) Influenza A: Code(s): J10.1 - Influenza due to other identified influenza virus with other respiratory manifestations Status: Acute DS: Summary Hospital Course Hospital Course: 79 y/o M presents here with shortness of breath with PMH of [place], atrial fibrillation, CHF, CAD, HLD, hypertension, pacemaker, emphysema, GERD, BPH, renal disease, diabetes, anxiety/depression. The patient presents here from [facility] via EMS for further evaluation of shortness of breath. The patient reports he has been feeling short of breath for the past 4 days. He reports the shortness of breath is accompanied by a productive cough and fatigue. Sputum has been green. He denies fever, chills, body aches, chest pain, nausea, vomiting, diarrhea, or abdominal pain. Patient was found to be hypoxic by EMS upon their arrival, placed on 2L NC while en route to the ER. Arrived to the ER at 98% on 2L NC and tachypneic in the 30's. The patient does not have a history of supplemental O2 requirement. The patient does have a history of CHF. He denies any recent increase in lower extremity swelling or weight gain. Initial VS at presentation: 98.7? F, HR 79, RR 37, 150/67, and 98% on 2L NC. ED workup showed: WBC 6.2, hemoglobin 12.2, INR 1.7, creatinine 1.05 and GFR >60, glucose 125, lactic 1.1, troponin 0.070, procalcitonin 0.3, and BNP 5680. No previous labs available for comparison. CXR showed bibasilar airspace disease suspicious for pneumonia and a small right pleural effusion. UA unremarkable. Patient tested positive for Flu A, negative for Flu B/RSV/COVID. During hospitalization, the following med issues have been addressed Acute hypoxemic respiratory failure: Code(s): J96.01 - Acute respiratory failure with hypoxia Status: Acute Assessment and Plan: new supplemental O2 requirement, currently requiring 2L NC. wean as tolerated and maintain sat above 92%. Possible due to pneumonia and fluid overload because of CHF Chronic patient is on room air, hypoxemia has resolved . Pneumonia: Qualifiers: Pneumonia type: due to influenza A virus Qualified Code(s): J10.00 - Influenza due to other identified influenza virus with unspecified type of pneumonia Code(s): J18.9 - Pneumonia, unspecified organism Status: Acute Assessment and Plan: Chest x-ray showed: Bibasilar airspace disease, suspicious for pneumonia. Small right pleural effusion Consistent with community-acquired pneumonia. Continue Azithromycin and ceftriaxone on 09/27 - Viral PCR positive for flu A Started Tamiflu p.o. 09/27 Continue Tamiflu azithromycin and ceftriaxone for 5 days on discharge Acute on chronic diastolic heart failure , aortic stenosis BNP elevated with effusion seen on CXR. echo 09/27 Left ventricular systolic function is preserved, estimated at 50-55%. Also suspecting moderate to severe aortic stenosis. The left ventricular diastolic function is grade IV diastolic dysfunction. history of CHF on Bumex 0.5 mg b.i.d. but does not appear volume overloaded on exam. Monitor I&Os and daily weight Started Lasix 40 mg b.i.d. IV push 09/28 Consult diagnostic cardiac sonographer for evaluation treatment Per diagnostic cardiac sonographer, DC IV Lasix and resume home dose of oral diuretic Bumex 0.5 mg b.i.d.Continue apixaban 5 mg b.i.d. Metoprolol XL 25 mg daily Continue statin Compensated, resume Bumex 0.5 mg b.i.d. p.o. Elevated troponin: Code(s): R79.89 - Other specified abnormal findings of blood chemistry Status: Acute Assessment and Plan: - EKG, initial: Electronic ventricular pacemaker, rate 63. No previous available for comparison. - CXR concerning for pneumonia and small pleural effusion - Troponin: 0.078 -> 0.070 - echo ordered, pleural effusion on imaging and elevated BNP - telemetry monitoring Suspect mild troponin leak secondary to new hypoxia. Consult diagnostic cardiac sonographer Pancytopenia White blood cell 3.5 1000, hemoglobin 11.4, platelet 73 Possible due to infection Follow-up CBC, thrombocytopenia is improving, white l blood cell count stable, May Refer to heme oncologist of outpatient follow-up per primary care provider Diabetes: Qualifiers: Diabetes mellitus type: type 2 Diabetes mellitus assisted insulin use: without assisted use Diabetes mellitus complication status: without complication Qualified Code(s): E11.9 - Type 2 diabetes mellitus without complications Code(s): E11.9 - Type 2 diabetes mellitus without complications Status: Chronic Assessment and Plan: Initial glucose 125. No home medications listed from half-way paperwork. - hypoglycemia protocol - POC blood glucose ACHS - correct regimen ordered - low dose TIDWM, based off total daily insulin - A1C ordered Continue home medication discharge HTN (hypertension): Qualifiers: Hypertension type: unspecified Qualified Code(s): I10 - Essential (primary) hypertension Code(s): I10 - Essential (primary) hypertension Status: Chronic Assessment and Plan: - chronic, currently 126/55 - no current antihypertensive medications, is on diuretic (Bumex 0.5 mg b.i.d.) - monitor Blood pressure is controlled in the target range Physical deconditioning Patient is discharged to acute rehab today Time Spent with Patient Time attestation: Total time spent providing and/or coordinating discharge services: Exam Narrative: GENERAL: Pleasant, in no acute distress. Well-nourished. - EYES: EOMI. Anicteric. - HENT: Moist mucous membranes. - LUNGS: Coarse breath sound bilateral base, no wheezing, rhonchi, or rales. - CARDIOVASCULAR: Regular rate and rhyth m. No murmur. No JVD. - ABDOMEN: Soft, non-tender and non-dist ended. No palpable masses. - EXTREMITIES: No edema. Peripheral puls es 2+. Non-tender. - NEUROLOGIC: No focal neurological defi cits. CN II-XII grossly intact. - PSYCHIATRIC: Awake, Alert and oriented x 3. Appropriate mood and affect. - SKIN: No rashes or lesions. Warm. - LYMPH: No cervical lymphadenopathy. DS: Data Data Completed and Pending Labs on day of discharge: Labs from last 24 hours 09/30/24 09/29/24 08:37 10:34 WBC 3.3 L 3.2 L RBC 4.75 4.64 Hgb 12.4 L 12.2 L Hct 40.6 L 39.4 L MCV 85.5 84.9 D MCH 26.1 26.3 MCHC 30.5 L 31.0 L RDW 16.0 H 16.3 H Plt Count 106 L 103 L MPV 9.1 9.6 Immature Gran % (Auto) 0.3 0.3 Neut % (Auto) 64.6 70.8 Lymph % (Auto) 22.2 16.8 L Nye % (Auto) 8.4 9.0 H Eos % (Auto) 3.9 2.8 Baso % (Auto) 0.6 0.3 Lymph # (Auto) 0.74 L 0.54 L Nye # (Auto) 0.3 0.3 Eos # (Auto) 0.1 0.1 Baso # (Auto) 0.0 0.0 Abs Immat Gran (auto) 0.01 0.01 Absolute Neuts (auto) 2.2 2.3 Absolute Nucleated RBC 0.000 0.000 Nucleated RBC % 0.0 0.0 % Immature Plt Fraction 2.7 Sodium 140 139 Potassium 4.1 3.7 Chloride 99 97 L Carbon Dioxide 30 28 Anion Gap 11 14 H BUN 24 H 25 H Creatinine 0.96 1.05 Estim Creat Clear Calc 56 51 Estimated GFR > 60 > 60 Glucose 117 H 123 H Calcium 9.5 8.7 Preliminary micro results at discharge 09/27/24 09:22 Blood Culture - Preliminary Blood 09/27/24 09:33 Blood Culture - Preliminary Blood Discharge Plan Discharge Attending physician on discharge: Herber Spicer Consulting providers: Omar Huerta Discharging Clinician: Herber Spicer Anticipated Discharge Date/Time: 09/30/24 10:32 Patient Disposition: Inpatient Rehab Facility Activity: may shower and as tolerated Diet: as tolerated Patient Language: Latvian Stand Alone Forms: General Discharge Information Follow-up/Referrals: k [Other] Dylon Castro MD [Physician] - 2 Weeks UNKNOWN,DOCTOR [Non-Staff] - (Patient needs to see primary care doctor in 1 week) Discharge Medications: New azithromycin 250 mg tablet 250 mg PO DAILY 2 Days Qty: 2 0RF Rx Instructions: start on day 2 of therapy cefdinir 300 mg capsule 300 mg PO Q12H Qty: 4 0RF oseltamivir [Tamiflu] 75 mg capsule 75 mg PO Q12H 2 Days Qty: 4 0RF Continued Eliquis 5 mg tablet 5 mg PO Q12H polyethylene glycol 3350 17 gram/dose powder 17 g PO DAILY PRN (Reason: constipation) memantine 10 mg tablet 10 mg PO QPM sennosides [senna] 8.6 mg tablet 17.2 mg PO DAILY PRN (Reason: constipation) pantoprazole 40 mg tablet,delayed release (DR/EC) 40 mg PO DAILY potassium chloride 10 mEq tablet extended release 10 meq PO BID sertraline 100 mg tablet 100 mg PO DAILY tramadol 50 mg tablet 50 mg PO Q8H PRN (Reason: pain) rosuvastatin 40 mg tablet 40 mg PO DAILY finasteride 5 mg tablet 5 mg PO DAILY galantamine 24 mg capsule,ext rel. pellets 24 hr 24 mg PO DAILY ferrous sulfate [FeroSul] 325 mg (65 mg iron) tablet 325 mg PO DAILY aspirin 81 mg tablet,chewable 81 mg PO DAILY lidocaine [AsperFlex (lidocaine)] 4 % cream 1 applic topical Q8H PRN (Reason: pain) Patient Comments: Apply to back and knees acetaminophen [Tylenol] 325 mg tablet 650 mg PO Q6H PRN (Reason: pain) diclofenac sodium [Arthritis Pain (diclofenac)] 1 % gel 2 g topical QID PRN (Reason: pain) ergocalciferol (vitamin D2) 1,000 unit capsule 50 mcg PO DAILY melatonin 3 mg tablet 3 mg PO HS bumetanide 0.5 mg tablet 0.5 mg PO BID Qty: 60 0RF Discontinued amoxicillin 500 mg capsule 500 mg PO Q8H Date of admission: 09/27/24 17:22 Primary Care Provider: Carlos AlbertoPonce Admitting Provider: Olvin Rodriguez Attending physician on admission: Olvin Rodriguez Condition: Stable
[2024-09-30] MEDS: POTASSIUM CHLORIDE 10 MEQ ER TABLET PO (09:57)
[2024-09-30] MEDS: OSELTAMIVIR PHOSPHATE 75 MG CAPSULE PO (09:57)
[2024-09-30] MEDS: FINASTERIDE 5 MG TABLET PO (09:57)
[2024-09-30] MEDS: ROSUVASTATIN 20 MG TABLET 40 MG PO (09:57)
[2024-09-30] MEDS: PANTOPRAZOLE 40 MG TABLET PO (09:57)
[2024-09-30] MEDS: APIXABAN 5 MG TABLET PO (09:57)
[2024-09-30] MEDS: ASPIRIN 81 MG CHEWABLE TABLET PO (09:57)
[2024-09-30] MEDS: SERTRALINE HCL 50 MG TABLET 100 MG PO (09:57)
[2024-09-30] MEDS: FERROUS SULFATE 325 MG TABLET DR BY MOUTH (09:57)
[2024-09-30] MEDS: CHOLECALCIFEROL 1,000 UNITS TABLET 2000 UNITS PO (09:57)
[2024-09-30] MEDS: AZITHROMYCIN 500 MG/NS 250 ML 500 MG/250 ML BAG 250 MG IVPB (09:58)
--- NOTE | 2024-09-30 13:42 | PC.NURSE ---
IV removed intact, educated and reviewed discharge instructions with the patient and dressed the patient. Clothing and discharge packet sent with the patient. PT transported via wheelchair off unit by rehab employee.
== END 2024-09-30 13:10 | DRG 193 ==
LOC: ANHED 12:20 → ANHIMU 14:02
PROVIDERS: Student in an Organized Health Care Education/Training Program; Admitting Provider General Practice; Emergency Provider Emergency Medicine; PCP Internal Medicine; Visit Provider Hospitalist
DX: J10.00 Influenza due to other identified influenza virus with unspecified type of pneumonia (principal); I50.33 Acute on chronic diastolic (congestive) heart failure; J96.01 Acute respiratory failure with hypoxia; I13.0 Hypertensive heart and chronic kidney disease with heart failure and stage 1 through stage 4 chronic kidney disease, or unspecified chronic kidney disease; D61.818 Other pancytopenia; I48.91 Unspecified atrial fibrillation; I25.10 Atherosclerotic heart disease of native coronary artery without angina pectoris; I35.0 Nonrheumatic aortic (valve) stenosis; E78.5 Hyperlipidemia, unspecified; K21.9 Gastro-esophageal reflux disease without esophagitis; F03.90 Unspecified dementia, unspecified severity, without behavioral disturbance, psychotic disturbance, mood disturbance, and anxiety; N40.0 Benign prostatic hyperplasia without lower urinary tract symptoms; F41.8 Other specified anxiety disorders; E11.22 Type 2 diabetes mellitus with diabetic chronic kidney disease; D69.6 Thrombocytopenia, unspecified; M19.90 Unspecified osteoarthritis, unspecified site; I25.2 Old myocardial infarction; Z95.1 Presence of aortocoronary bypass graft; Z95.0 Presence of cardiac pacemaker
CPT/HCPCS: 36415; 71046; 80048; 80053; 81003; 82948; 83036; 83605; 83690; 83735; 83880; 84145; 84443; 84484; 85025; 85055; 85610; 85730; 87040; 87637; 93005; 93306; 94640; 96361; 96365; 96367; 96375; 99285; A9270; G0378; J0456; J0696; J1940; J7030